=== PATIENT | female | born 1930 | race Caucasian/White ===

== ENCOUNTER 2018-04-25 01:21 | Inpatient (IN) ==
--- NOTE | 2018-04-25 05:57 | Internal Med History&Physical ---
Date of Encounter: 04/25/18 Time of Encounter: 05:53 Internal Medicine - H&P: HPI Chief complaint: status post fall History of present illness: Ms. Kelsey is a 87 year old female who presented to the outside hospital with a chief complaint of having a problem after she sustained a fall. Imaging studies revealed, in U Limited intertrochanteric fracture with forced shortening and angulation of the distal fragment, surgery was consulted and requested for the patient to be admitted to the hospitalist service and they will see the patient in consult. Past Med Surg Social Fam HX - Past Medical History Medical history: dementia, glaucoma, hypertension Additional medical history: SHINGLES Psychiatric history: no psych history - Past Surgical History Surgical History: hysterectomy Additional surgical history: LEFT KNEE SURGERY - Social History Smoking Status: Former smoker Smokeless Tobacco Status: No Alcohol use: none Drug use: none - Family History Mother Living Status: Age at : 98 Father History Unknown: Yes Internal Medicine - H&P: Meds Latanoprost 1 drop BOTH EYES HS 02/08/18 [History] Lisinopril 40 mg PO DAILY 02/08/18 [History] Timolol 1 drop BOTH EYES DAILY 02/08/18 [History] hydroCHLOROthiazide 25 mg PO DAILY 02/08/18 [History] 3 Allergy/AdvReac Type Severity Reaction Status Date / Time Sulfa (Sulfonamide Allergy Hives Verified 02/08/18 17:38 Antibiotics) ROS unobtainable: due to mental status All Systems PM: A 10-system review of systems was performed and is negative for pertinent findings except as documented above in the HPI. - Constitutional Vitals: Temp Pulse Resp BP Pulse Ox 97.8 F 57 16 168/66 99 04/25/18 03:22 04/25/18 03:22 04/25/18 03:22 04/25/18 03:22 04/25/18 03:22 - Head Head exam: Present: atraumatic, normocephalic - Neck Neck exam general surgery: Present: supple, trachea midline. Absent: lymphadenopathy - Respiratory Respiratory exam: Present: CTAB. Absent: accessory muscle use, rales, rhonchi, wheezes - Cardiovascular Cardiovascular exam: Present: RRR, +S1, +S2. Absent: diastolic murmur, gallop, rubs, systolic murmur - GI/Abdominal GI/Abdominal exam: Present: normal bowel sounds, soft, no peritoneal signs. Absent: distended, tenderness - Extremities Exam Extremities exam: Present: warm, radial pulses palpable and symmetrical. Absent : calf tenderness, cyanotic, pedal edema - Assessment and plan (1) Hip fracture, right Current Visit: Yes Status: Acute Assessment and plan: Orthopedic surgery were consulted and they will be seeing the patient in consult this a.m. (2) Hypertension Current Visit: Yes Status: Acute Assessment and plan: We will continue home meds and continue to monitor the patient blood pressure for possible further adjustment (3) DVT prophylaxis Current Visit: Yes Status: Acute Assessment and plan: heparin 5000 BID - Time Spent With Patient Total time spent is greater than 50% in coordination of care (as documented) at patient's floor/unit and/or counseling patient:
[2018-04-25] MEDS ORDERED: Acetaminophen 325 MG TABLET PO PRN ×2 (06:01→19:12)
[2018-04-25] MEDS ORDERED: Naloxone 0.4 MG/ML INJ IVP PRN ×2 (06:01→19:12)
[2018-04-25] MEDS ORDERED: Ondansetron ODT 4 MG TAB.RAPDIS SL PRN ×2 (06:01→19:12)
[2018-04-25] MEDS ORDERED: *HR* HYDROcodone/Acet 5/325 mg TABLET PO PRN ×2 (06:01→19:12)
[2018-04-25] MEDS ORDERED: 0.9 % Sodium Chloride 1,000 ML IVC SCH (06:15)
[2018-04-25 06:32] LABS: INR 1.1; Prothrombin Time 11.9 Seconds (9.4-12.1)
[2018-04-25 06:35] LABS: Activated Partial Thrombo Time 34.5 Seconds (26.0-36.0)
[2018-04-25 06:56] LABS: Albumin 3.7 g/dL (3.5-5.7); Albumin/Globulin Ratio 1.4 (1.1-2.2); Bilirubin,Total 0.4 mg/dL (0.3-1.0); Calcium 9.2 mg/dL (8.6-10.3); Chol/HDL Ratio 3.8 (0-4.9); Globulin 2.7 g/dL (2.4-3.5); Magnesium 2.3 mg/dL (1.6-2.6); Phosphorous 4.8 mg/dL (2.7-4.5); Potassium 4.6 mEq/L (3.5-5.1); Total Protein 6.4 g/dL (6.4-8.9)
[2018-04-25 07:00] LABS: Basophils % 0.2 %; Eosinophils % 0.3 %; Hematocrit 33.2 % (35.3-44.9); Immature Granulocytes % 0.5 % (0-4); Lymphocytes % 11.2 %; Mean Corpuscular HGB Conc 33.1 g/dL (31.6-35.5); Mean Corpuscular Hemoglobin 32.2 pg (28.0-33.3); Mean Corpuscular Volume 97.1 fL (83.0-100.0); Mean Platelet Volume 11.2 fL (9.4-12.4); Monocytes # 0.6 K/mcL (0.0-1.3); Neutrophils # 7.1 K/mcL (1.6-8.9); Platelet Count 166 K/mcL (140-400); Red Blood Count 3.42 M/mcL (3.82-4.97); Red Cell Distribution Width 14.4 % (11.5-14.5); Segmented Neutrophils % 80.8 %
[2018-04-25] MEDS ORDERED: *HR* FentaNYL (PF) 100 MCG/2 ML VIAL IVP ONE (07:03)
[2018-04-25 07:19] LABS: Bilirubin,Urine Negative (Negative); Blood,Urine Trace (Negative); Clarity,Urine Clear (Clear); Color,Urine Yellow (Yellow); Glucose,Urine (UA) Normal (Normal); Ketones,Urine Negative (Negative); Leukocyte Esterase,Urine Negative (Negative); Nitrite,Urine Negative (Negative); PH,Urine 5.5 pH Units (5.0-8.0); Protein,Urine Negative (Neg-Trace); Urobilinogen,Urine Normal (Normal)
[2018-04-25 07:22] LABS: Bacteria,Urine None Seen per hpf (None-Few); Hyaline Casts,Urine None Seen per lpf (None-Few); Squamous Epithelial Cell,Urine Moderate per lpf (None-Few); WBC,Urine 0-3 per hpf (0-3)
--- NOTE | 2018-04-25 07:33 | Anesthesia Evaluation PreOp ---
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) Other Medical History: Denies Any Significant HX Anesthesia History: No Prior Anesthetic Complications, Past Anesthesia Alcohol Use: none Drug use: none Medications and Allergies Latanoprost 1 drop BOTH EYES HS 02/08/18 [History] Lisinopril 40 mg PO DAILY 02/08/18 [History] Timolol 1 drop BOTH EYES DAILY 02/08/18 [History] hydroCHLOROthiazide 25 mg PO DAILY 02/08/18 [History] 3 Allergy/AdvReac Type Severity Reaction Status Date / Time Sulfa (Sulfonamide Allergy Hives Verified 02/08/18 17:38 Antibiotics) - Meds/Allergy Pre-op Review Medications Reviewed: Yes Allergies Reviewed: Yes Beta Blockers on Current Med List: No Anesthesia Results - Labs 04/25/18 06:14 04/25/18 06:14 Laboratory Tests 04/25/18 06:15 PT 11.9 INR 1.1 APTT 34.5 - Imaging Additional studies: 04/25/2018 Echo Impressions: LVEF 60-65%. Normal LV chamber size and function. Mild concentric left ventricular hypertrophy. Mild left ventricular diastolic dysfunction. Grossly normal right ventricular structure and function. Severely calcified aortic valve leaflets. Mild aortic regurgitation. Severe aortic stenosis. Mean gradient 44 mmHg. Peak velocity 4.08 m/s. Unable to estimate RVSP due to lack of TR jet. Anesthesia Exam Vital Signs/O2 Sat, Most Current Temp Pulse Resp BP Pulse Ox 97.6 F 62 18 132/66 96 04/25/18 06:22 04/25/18 06:22 04/25/18 06:22 04/25/18 06:22 04/25/18 06:22 Height: 4'11''/1.5m Weight: 111 lbs/50.5 kg NPO (# of Hours): 8 Pain Scale: 0 Pain Scale Used: Numeric (1 - 10) - HEENT Pupil (Motor): EOMI Mallampati: II Teeth: Edentulous Oral Opening: Greater than 3 - MECHANICAL SYSTEMS CONTROL ENGINEER LOC: Oriented MECHANICAL SYSTEMS CONTROL ENGINEER Motor: Normal RUE, Normal LUE, Normal RLE, Normal LLE, Normal Face MECHANICAL SYSTEMS CONTROL ENGINEER Sensory: Normal: RUE, LUE, RLE, LLE, Face - Cardiac Rhythm: Regular Murmur: Systolic - Pulmonary Breath Sounds: bilateral Clear Respiratory Effort: Symmetrical Anesthesia Assess/Plan ASA Score: 4 (Patient is awake and cooperative but confused. Consent obtained from daughter(POA).Patient's family understands that she is at increased risk for perioperative complications including myocardial infarct, arrhythmias, CVA, post op vent support/ICU stay, and . Patient's family wishes to proceed.) Anesthetic Plan: General Monitoring Plan: Standard Monitors, A-Line Recovery Plan: PACU
--- NOTE | 2018-04-25 07:44 | Orthopedic Consult Note ---
Date of Encounter: 04/25/18 Time of Encounter: 07:42 Assessment and Plan (1) Hip fracture, right Current Visit: Yes Status: Amanda Darling has a right hip reverse obliquity intertrochanteric fracture. The recommendation is for surgical fixation to allow for early mobilization and pain control. After discussing the pros and cons of treatment options with the family, the family has elected to proceed with right hip cephalomedullary nail at this time. The risks and benefits of the procedure were fully explained in detail, including but not limited to the risk of infection, neurovascular injury , continued pain or stiffness, failure of surgery, reinjury, or need for additional surgery, DVT, PE, general risks of anesthesia and loss of limb or life. No guarantees were given or implied and all questions were answered. The family understands all the risks and does wish to proceed with written consent. NPO for surgery. Qualifiers: Encounter type: initial encounter Fracture type: closed Qualified Code(s) : S72.001A - Fracture of unspecified part of neck of right femur, initial encounter for closed fracture History of Present Illness HPI: Ms. Kelsey is a 87 year old female with PMHx glaucoma, hypertension, and dementia who had a witnessed mechanical fall onto her right hip last night after tripping on a rug. She had immediate pain and deformity in the hip. She was brought to the ED and diagnosed with a right hip fracture. Orthopedics was consulted for fixation. Per the family she has a walker but does not use it. There was no loss of consciousness, blacking out, CP or SOB prior to the fall. No neuro complaints. Past Med Surg Social Fam HX - Past Medical History Medical history: dementia, glaucoma, hypertension Additional medical history: SHINGLES Psychiatric history: no psych history - Past Surgical History Surgical History: hysterectomy Additional surgical history: LEFT KNEE SURGERY - Social History Smoking Status: Former smoker Smokeless Tobacco Status: No Alcohol use: none Drug use: none - Family History Mother Living Status: Age at : 98 Father History Unknown: Yes Medications and Allergies Latanoprost 1 drop BOTH EYES HS 02/08/18 [History] Lisinopril 40 mg PO DAILY 02/08/18 [History] Timolol 1 drop BOTH EYES DAILY 02/08/18 [History] hydroCHLOROthiazide 25 mg PO DAILY 02/08/18 [History] 3 Allergy/AdvReac Type Severity Reaction Status Date / Time Sulfa (Sulfonamide Allergy Hives Verified 02/08/18 17:38 Antibiotics) All Systems Reviewed: The remainder of the systems were reviewed and are negative except as noted in the HPI Physical Exam - Constitutional Vitals: Temp Pulse Resp BP Pulse Ox 97.6 F 62 18 132/66 96 04/25/18 06:22 04/25/18 06:22 04/25/18 06:22 04/25/18 06:22 04/25/18 06:22 Exam: Consult Exam: Constitutional -Vitals reviewed -The patient is well developed and well nourished. Psychiatric -The patient is alert and oriented to person. Motor and sensory exam limited by dementia. Respiratory: -Respiratory effort normal Abdomen: -Soft abdomen -Non tender -Non distended: Left upper extremity: -No deformities. The overlying skin is intact. No obvious signs of acute trauma. -No tenderness to palpation throughout. -No significant pain with passive motion of the shoulder, elbow, wrist, and fingers within the limits of the bed. -Spontaneously moving extremity. -Radial pulse is present; Fingers have good capillary refill. Right upper extremity: -No deformities. The overlying skin is intact. No obvious signs of acute trauma. -No tenderness to palpation throughout. -No significant pain with passive motion of the shoulder, elbow, wrist, and fingers within the limits of the bed. -Spontaneously moving extremity. -Radial pulse is present; Fingers have good capillary refill. Left lower extremity: -No deformities. The overlying skin is intact. No obvious signs of acute trauma. -No tenderness to palpation throughout. -No pain with passive motion of the hip, knee, ankle, and toes within the limits of the bed. -No pain with axial loading of the thigh. -Spontaneously moving extremity. -Toes have good capillary refill. Right lower extremity: -Right hip short and ER. Passive motion of the hip deferred due to known fracture. -No obvious pain with palpation of knee, tibia, ankle and foot. -Spontaneously moving extremity. -Toes have good capillary refill. Results - Labs Result Diagrams: 04/25/18 06:14 04/25/18 06:14 Labs: Abnormal lab results RBC 3.42 M/mcL (3.82-4.97) L 04/25/18 06:14 Hgb 11.0 g/dL (11.5-15.4) L 04/25/18 06:14 Hct 33.2 % (35.3-44.9) L 04/25/18 06:14 Chloride 110 mEq/L (98-107) H 04/25/18 06:14 BUN 50 mg/dL (8-23) H 04/25/18 06:14 Creatinine 1.57 mg/dL (0.60-1.20) H 04/25/18 06:14 Est GFR ( Amer) 38 (> 60) L 04/25/18 06:14 Est GFR (Non-Af Amer) 31 (> 60) L 04/25/18 06:14 BUN/Creatinine Ratio 32 (6-26) H 04/25/18 06:14 Glucose 144 mg/dL (70-105) H 04/25/18 06:14 Calculated Osmolality 312 (280-300) H 04/25/18 06:14 Phosphorus 4.8 mg/dL (2.7-4.5) H 04/25/18 06:14 Alkaline Phosphatase 31 Units/L (34-104) L 04/25/18 06:14 LDL Cholesterol, Calc 110 mg/dL (0-99) H 04/25/18 06:14 Urine Blood Trace (Negative) H 04/25/18 07:10 Urine Microscopic RBC 5-15 per hpf (0-3) H 04/25/18 07:10 Ur Squamous Epith Cells Moderate per lpf (None-Few) H 04/25/18 07:10 H & H 04/25/18 Range/Units 06:14 Hgb 11.0 L (11.5-15.4) g/dL Hct 33.2 L (35.3-44.9) % All other labs normal. - Diagnostic results Hip x-ray: image reviewed (Right hip reverse obliquity intertrochanteric fracture) Consult Discharge Plan - Plan Referrals: Mauro Gee MD [Primary Care Provider] -
[2018-04-25] MEDS ORDERED: hydroCHLOROthiazide 25 MG TABLET PO SCH (09:00)
[2018-04-25] MEDS ORDERED: Lisinopril 20 MG TABLET PO SCH (09:00)
[2018-04-25] MEDS: 0.9 % Sodium Chloride 1,000 ML IVC SCH ×2 (09:16→21:52)
--- NOTE | 2018-04-25 09:21 | Event Note ---
Date of Encounter: 04/25/18 Time of Encounter: 09:16 S: Patient had no acute events after admission. She had some pain this morning that is now well-controlled after getting IV fentanyl. She was taken down to surgery, but came back with request for ECHO prior to surgery. I have ordered this. She denies fever, chills, chest pain, SOB, nausea, vomiting, or abdominal pain. Family is in room today and we discussed plan of care. Family states that she has history of kidney disease, but she never went to her nephrology referral appointment. Patient has no complaints at this time. O: Gen - Awake, alert, no acute distress HEENT - NCAT, PERRLA, EOMI, hearing grossly intact, oropharynx benign CV - RRR, normal S1 and S2, no M/R/G, no BLE edema Resp - Normal WOB, CTAB, no W/R/R GI - Soft, NT/ND, no masses, normal bowel sounds, no HSP Ext - No TTP over right hip; unable to evaluate ROM due to known fracture Skin - Warm, dry, no rashes/lesions/ulcers Psych - Normal mood and affect, no depression or anxiety A/P: 1) Right Hip Fracture - Orthopedics consulted; appreciate input. ECHO today, then surgery. Pain control. PT/OT after surgery. 2) CKD - No known baseline. Cr elevated. Continue IVF while NPO. Recheck BMP in AM. 3) HTN - Continue home medications.
[2018-04-25] MEDS ORDERED: Ethanol\\Acetic Acid\\Na Ace\\Ben 1,000 ML IRRIG.SOLN IR ONE (09:25)
[2018-04-25] MEDS ORDERED: *HR* FentaNYL (PF) 100 MCG/2 ML VIAL IVP PRN ×3 (12:17→19:12)
[2018-04-25] MEDS ORDERED: *HR* Phenylephrine 10 MG/ML VIAL ONE (14:23)
[2018-04-25] MEDS ORDERED: Dexamethasone 4 MG/ML VIAL ONE (14:23)
[2018-04-25] MEDS ORDERED: Lidocaine -MPF 2% 2 ML VIAL ONE (14:23)
[2018-04-25] MEDS ORDERED: Ondansetron 4 MG/2 ML VIAL ONE (14:23)
[2018-04-25] MEDS ORDERED: Heparin 1,000 UNITS/500 mL 500 ML ONE (14:24)
[2018-04-25] MEDS ORDERED: *HR* Etomidate 40 MG/20 ML VIAL IVP ONE (14:24)
[2018-04-25] MEDS ORDERED: *HR* Remifentanil 2 MG VIAL IVP ONE (14:26)
--- NOTE | 2018-04-25 14:49 | Orthopedics Progress Note ---
Date of Encounter: 04/25/18 Time of Encounter: 14:47 Subjective Interval history: S: Seen at the bedside with Dr. Elliott. I will be resuming the care of the patient. She complains of isolated pain to the right hip and groin. O: Constitutional -Vitals reviewed -The patient is well developed and well nourished. -Mood is pleasant. -The patient is well groomed. Psychiatric -The patient is fully alert and oriented x 3. Respiratory: -Respiratory effort normal Abdomen: -Soft abdomen -Non tender -Non distended: Left upper extremity: -No deformities. The overlying skin is intact. No obvious signs of acute trauma. -No tenderness to palpation throughout. -No significant pain with passive motion of the shoulder, elbow, wrist, and fingers within the limits of the bed. -Able to make an "OK" sign, cross the index and long fingers, and extend the thumb. -Sensation grossly intact to light touch throughout the median, radial, and ulnar distributions. -Radial pulse is present; Fingers have good capillary refill. Right upper extremity: -No deformities. The overlying skin is intact. No obvious signs of acute trauma. -No tenderness to palpation throughout. -No significant pain with passive motion of the shoulder, elbow, wrist, and fingers within the limits of the bed. -Able to make an "OK" sign, cross the index and long fingers, and extend the thumb. -Sensation grossly intact to light touch throughout the median, radial, and ulnar distributions. -Radial pulse is present; Fingers have good capillary refill. Left lower extremity: -No deformities. The overlying skin is intact. No obvious signs of acute trauma. -No tenderness to palpation throughout. -No pain with passive motion of the hip, knee, ankle, and toes within the limits of the bed. -No pain with axial loading of the thigh. -Able to dorsiflex and plantarflex the ankle and toes. -Sensation is grossly intact to light touch throughout the sural, saphenous, superficial peroneal, and deep peroneal distributions. -Toes have good capillary refill. Right lower extremity: -The extremity is shortened and externally rotated. The overlying skin is intact. -There is tenderness in the groin region as well as the proximal lateral thigh. -I did not range the hip due to the known fracture. -No tenderness along the distal thigh, leg, ankle, foot, or toes. -Able to dorsiflex and plantarflex the ankle and toes. -Sensation is grossly intact to light touch throughout the sural, saphenous, superficial peroneal, and deep peroneal distributions. -Toes have good capillary refill. Right hip x-ray shows reverse obliquity intertrochanteric hip fracture A: Right intertrochanteric hip fracture as described above P: I did discuss the diagnosis in detail. My recommendation was to continue with reduction and fixation of the right hip. She is at high risk of complication given her comorbidities particularly the aortic stenosis. I did discuss the risk of intraoperative stroke, heart attack, and as well as significant postoperative morbidities. They did wish to proceed and consent was obtained. Objective Vital signs: Vital Signs Temp Pulse Resp BP Pulse Ox 04/25/18 11:29 98.5 F 59 16 145/76 97 04/25/18 09:25 96 04/25/18 06:22 97.6 F 62 18 132/66 96 04/25/18 03:22 97.8 F 57 16 168/66 99 Intake and Output 04/24/18 04/25/18 04/25/18 23:59 07:59 15:59 Intake Total 0 / 0 Output Total 125 / 125 Balance -125 / -125 Intake: Oral 0 / 0 Output: Catheter 125 / 125 Other: Weight 50.5 kg Patient Weight 04/25/18 23:59 Weight 50.5 kg - Labs CBC & BMP: 04/25/18 06:14 04/25/18 06:14 Labs: Abnormal lab results RBC 3.42 M/mcL (3.82-4.97) L 04/25/18 06:14 Hgb 11.0 g/dL (11.5-15.4) L 04/25/18 06:14 Hct 33.2 % (35.3-44.9) L 04/25/18 06:14 Chloride 110 mEq/L (98-107) H 04/25/18 06:14 BUN 50 mg/dL (8-23) H 04/25/18 06:14 Creatinine 1.57 mg/dL (0.60-1.20) H 04/25/18 06:14 Est GFR ( Amer) 38 (> 60) L 04/25/18 06:14 Est GFR (Non-Af Amer) 31 (> 60) L 04/25/18 06:14 BUN/Creatinine Ratio 32 (6-26) H 04/25/18 06:14 Glucose 144 mg/dL (70-105) H 04/25/18 06:14 Calculated Osmolality 312 (280-300) H 04/25/18 06:14 Phosphorus 4.8 mg/dL (2.7-4.5) H 04/25/18 06:14 Alkaline Phosphatase 31 Units/L (34-104) L 04/25/18 06:14 LDL Cholesterol, Calc 110 mg/dL (0-99) H 04/25/18 06:14 Urine Blood Trace (Negative) H 04/25/18 07:10 Urine Microscopic RBC 5-15 per hpf (0-3) H 04/25/18 07:10 Ur Squamous Epith Cells Moderate per lpf (None-Few) H 04/25/18 07:10 Consult Discharge Plan - Plan Referrals: Mauro Gee MD [Primary Care Provider] -
[2018-04-25] MEDS ORDERED: *HR* FentaNYL (PF) 100 MCG/2 ML VIAL ONE ×2 (15:23→17:50)
[2018-04-25] MEDS ORDERED: Clindamycin 900 MG/50 ML 900 MG/50 ML IV.SOLN IVPB ONE (15:24)
[2018-04-25] MEDS ORDERED: EPHEDrine 50 MG/ML VIAL ONE (15:58)
[2018-04-25] MEDS ORDERED: Ketorolac 15 MG/ML VIAL IVP ONE (17:15)
[2018-04-25] MEDS: MORPHINE SUL Oral CONC 10 MG/0.5 ML ORAL.SYG SL PRN ×2 (17:28→17:42)
--- NOTE | 2018-04-25 17:46 | Orthopedic Operative Note ---
Date of procedure: 04/25/18 Procedure: OPERATIVE REPORT DATE OF PROCEDURE: 04/25/2018 SURGEON: Mac Horta MD VICE PRESIDENT INDUSTRIAL RELATIONS(S): There were no assistants PREOPERATIVE DIAGNOSIS: Right reverse obliquity intertrochanteric hip fracture POSTOPERATIVE DIAGNOSIS: Same PROCEDURE: Reduction and medullary nail fixation of the right hip ANESTHESIA: Gen. anesthesia PREOPERATIVE ANTIBIOTICS: Under 100 mg of clindamycin ESTIMATED BLOOD LOSS: 100 milliliters IMPLANTS: Marilu gamma 3 11 mm x 360 mm nail with a 125 degree head PREOPERATIVE NOTE AND INDICATIONS: This patient is an 87-year-old female with a right reverse oblique intertrochanteric hip fracture. Treatment options were discussed and the recommendation was for reduction and fixation in order to reduce and stabilize the right hip for pain control purposes and to help facilitate nursing care. The patient is high risk given her severe aortic stenosis and this was discussed with the family. The surgical plan was discussed with the patient. The risks, benefits, alternatives, and potential complications of this procedure were discussed with the patient including injury to veins, arteries, nerves, tendons, ligaments, and bone. Also discussed were the risks of infection, bleeding, pain, blood clots, the possible need for a blood transfusion, the possible need for further procedures, heart attack, stroke, and . Additional risks include malunion , nonunion, hardware failure, hardware breakage. All of this was explained in simple terms, and the patient verbalized understanding and wished to proceed. Consent was given to proceed with surgery. PROCEDURE: The patient was seen in the preoperative holding area where the identify and the consent were confirmed. The right hip was marked. Final questions were answered. The patient was brought back to the operating room. A huddle was performed with the patient and all vital surgical team members confirming patient identity, the correct procedure, and the correct operative site. Gen. anesthesia was administered. The patient was placed on a fracture table and the right lower extremities placed in traction reduction and internal rotation which reduced the fracture nicely. X-rays confirmed good position. The right thigh was prepped and draped in the usual sterile fashion. A surgical time out was performed immediately preceding the incision with all personnel in the operating room to confirm patient identity, the correct operative site and extremity, correct radiographic studies, availability of appropriate surgical equipment, and agreement on the planned procedure. A longitudinal incision was made through the skin and subcutaneous tissue superior to the greater trochanter and dissection proceeded through the gluteal fascia. A guidewire was inserted into the proximal femur. This was opened with a curved awl. The ball-tipped guidewire was placed onto the femur distally and the nail was measured. Reaming proceeded up to 12-1/2 mm as the 11 mm nail was the widest available. This was placed down the femoral canal and the triple sleeve placed over the skin and the second incision was made through the skin, subcutaneous tissue, and the fascia. The guidewire was drilled into the femoral head and overdrilled and the appropriate length lag screw was placed. Using a perfect [place] technique to incisions were made and 2 distal interlocking screws were placed. X-rays confirmed adequate reduction. The wounds were copiously irrigated and the fascia was closed with 0 Vicryl stitches followed by the skin with 3-0 Vicryl and cesar. The patient was placed on a regular hospital bed in good condition. The instrument, sponge, and needle counts were correct after wound closure. POST OPERATIVE PLAN: Weight Bearing: Nonweightbearing to the right lower extremity. DVT Prophylaxis: Aspirin Activity: Activities as tolerated with the assistance of nursing and physical therapy. Wound Care: Daily dressing changes beginning on postoperative day 2. Perioperative antibiotic prophylaxis: 2 doses of clindamycin Social work for discharge planning Follow Up: 2 weeks for staple removal. Anticipate nonweightbearing for 6 weeks. Was there an personal banking assistant present: No Estimated blood loss (cc): 100
[2018-04-25] MEDS: *HR* FentaNYL (PF) 100 MCG/2 ML VIAL IVP SCH ×2 (17:54→18:06)
--- NOTE | 2018-04-25 18:52 | Anesthesia Evaluation Post Op ---
Date of Encounter: 04/25/18 Time of Encounter: 18:52 - Vital Signs Vital Signs: Vital Signs/O2 Sat, Most Current Temp Pulse Resp BP Pulse Ox 97.6 F 86 22 144/64 99 04/25/18 18:17 04/25/18 18:37 04/25/18 18:37 04/25/18 18:37 04/25/18 18:37 - Lungs Lungs: Clear Ascult./Percussion - Airway Airway: Non-obstructed - Cardiovascular Regular Rate - Mental Status Mental Status: Asleep with brisk response to light stimulation - Pain Pain Scale used: Unable to assess - Nausea Vomiting Nausea Vomiting: Not Present - Hydration Hydration: NPO, Srivastava catheter - Discharge PostOp Status: Transfer Patient to floor
[2018-04-25] MEDS ORDERED: Latanoprost 2.5 ML BOTTLE BOTH EYES SCH (21:00)
[2018-04-25] MEDS: Latanoprost 2.5 ML BOTTLE BOTH EYES SCH (21:58)
[2018-04-26] MEDS ORDERED: 0.9 % Sodium Chloride 250 ML IVC ONE (00:45)
[2018-04-26] MEDS: Clindamycin 900 MG/50 ML 900 MG/50 ML IV.SOLN IVPB SCH ×2 (00:55→08:47)
[2018-04-26 01:15] LABS: Hematocrit 25.4 % (35.3-44.9); Immature Granulocytes % 0.4 % (0-4); Lymphocytes # 0.6 K/mcL (0.6-4.6); Lymphocytes % 7.5 %; Mean Corpuscular HGB Conc 32.3 g/dL (31.6-35.5); Mean Corpuscular Hemoglobin 31.9 pg (28.0-33.3); Mean Corpuscular Volume 98.8 fL (83.0-100.0); Monocytes # 0.6 K/mcL (0.0-1.3); Monocytes % 6.6 %; Neutrophils # 7.2 K/mcL (1.6-8.9); Platelet Count 127 K/mcL (140-400); Red Blood Count 2.57 M/mcL (3.82-4.97); Red Cell Distribution Width 14.6 % (11.5-14.5); Segmented Neutrophils % 85.5 %
[2018-04-26 01:19] LABS: Hemoglobin 8.2 g/dL (11.5-15.4)
[2018-04-26 01:36] LABS: Albumin/Globulin Ratio 1.6 (1.1-2.2); Bilirubin,Total 0.4 mg/dL (0.3-1.0); Calcium 8.3 mg/dL (8.6-10.3); Chol/HDL Ratio 3.9 (0-4.9); Globulin 1.9 g/dL (2.4-3.5); Magnesium 1.9 mg/dL (1.6-2.6); Phosphorous 5.4 mg/dL (2.7-4.5); Potassium 4.9 mEq/L (3.5-5.1); Total Protein 4.9 g/dL (6.4-8.9)
[2018-04-26] MEDS: 0.9 % Sodium Chloride 1,000 ML IVC SCH ×5 (06:38→23:37)
[2018-04-26] MEDS ORDERED: 0.9 % Sodium Chloride 1,000 ML IVC ONE (08:31)
--- NOTE | 2018-04-26 08:45 | Orthopedics Progress Note ---
Date of Encounter: 04/26/18 Time of Encounter: 08:43 - Assessment and Plan (1) Hip fracture, right Current Visit: Yes Status: Acute Qualifiers: Encounter type: initial encounter Fracture type: closed Qualified Code(s) : S72.001A - Fracture of unspecified part of neck of right femur, initial encounter for closed fracture Subjective Interval history: S: Significant improvement of the right hip pain. No new complaints. O: Afebrile on the vital signs are stable Calves are nontender Neurovascularly intact distally to the right lower extremity A: Postoperative day 1 after right hip nailing. P: At this point the patient is doing very well clinically. Srivastava out today. Up with therapy. Aspirin 325 by mouth twice a day for DVT prophylaxis. Dressing change tomorrow. Objective Vital signs: Vital Signs Temp Pulse Resp BP Pulse Ox 04/26/18 07:03 98.9 F 75 16 100/60 95 04/26/18 03:26 74 14 96/51 04/26/18 02:41 97.9 F 69 16 98 04/26/18 01:15 104/61 04/25/18 23:16 98.0 F 68 18 99 04/25/18 22:05 98.6 F 14 101/63 99 04/25/18 21:00 97.8 F 87 15 95/60 100 04/25/18 20:00 97.8 F 82 14 98/63 100 04/25/18 19:30 97.9 F 87 14 94/50 98 04/25/18 18:55 97.6 F 92 20 134/72 99 04/25/18 18:37 86 22 144/64 99 04/25/18 18:27 90 20 147/71 99 04/25/18 18:17 97.6 F 88 20 144/65 98 04/25/18 18:07 87 20 151/52 99 04/25/18 17:57 88 20 164/91 99 04/25/18 17:47 97.7 F 92 20 184/81 100 04/25/18 17:37 98 20 182/83 99 04/25/18 17:27 104 22 179/101 99 04/25/18 17:17 99 20 164/104 99 04/25/18 17:07 98.1 F 98 16 128/77 94 04/25/18 11:29 98.5 F 59 16 145/76 97 04/25/18 09:25 96 Intake and Output 04/25/1818 04/26/18 23:59 07:59 15:59 Intake Total 1000 / 1000 Output Total 550 / 550 200 / 200 Balance -550 / -550 800 / 800 Intake: IV Fluids 1000 / 1000 0.9 % Sodium Chloride 1,000 ML 1000 / 1000 @ 125 mls/hr IVC .Q8H ALICIA Rx#: [id number] Output: Urine 450 / 450 Catheter 100 / 100 200 / 200 - Labs CBC & BMP: 04/26/18 00:49 04/26/18 00:49 Labs: Abnormal lab results RBC 2.57 M/mcL (3.82-4.97) L 04/26/18 00:49 Hgb 8.2 g/dL (11.5-15.4) L D 04/26/18 00:49 Hct 25.4 % (35.3-44.9) L 04/26/18 00:49 RDW 14.6 % (11.5-14.5) H 04/26/18 00:49 Plt Count 127 K/mcL (140-400) L 04/26/18 00:49 Chloride 112 mEq/L (98-107) H 04/26/18 00:49 BUN 43 mg/dL (8-23) H 04/26/18 00:49 Creatinine 1.47 mg/dL (0.60-1.20) H 04/26/18 00:49 Est GFR ( Amer) 41 (> 60) L 04/26/18 00:49 Est GFR (Non-Af Amer) 34 (> 60) L 04/26/18 00:49 BUN/Creatinine Ratio 29 (6-26) H 04/26/18 00:49 Glucose 149 mg/dL (70-105) H 04/26/18 00:49 Calculated Osmolality 310 (280-300) H 04/26/18 00:49 Calcium 8.3 mg/dL (8.6-10.3) L 04/26/18 00:49 Phosphorus 5.4 mg/dL (2.7-4.5) H 04/26/18 00:49 Alkaline Phosphatase 27 Units/L (34-104) L 04/26/18 00:49 Serum Total Protein 4.9 g/dL (6.4-8.9) L 04/26/18 00:49 Albumin 3.0 g/dL (3.5-5.7) L 04/26/18 00:49 Globulin 1.9 g/dL (2.4-3.5) L 04/26/18 00:49 HDL Cholesterol 35 mg/dL (40-59) L 04/26/18 00:49 Urine Blood Trace (Negative) H 04/25/18 07:10 Urine Microscopic RBC 5-15 per hpf (0-3) H 04/25/18 07:10 Ur Squamous Epith Cells Moderate per lpf (None-Few) H 04/25/18 07:10 - VTE Documentation of Mechanical Device: Intermittent pneumatic compression device Consult Discharge Plan - Plan Additional Instructions: RESIDENTIAL DISCHARGE INSTRUCTIONS Dr. Horta PROCEDURE PERFORMED Reduction and fixation of right hip. Incision care -Daily dressing changes to the right hip with dry gauze and either paper tape or medipore tape. -Avoid soaking wound in water (no hot tubs, bathtubs, swimming pools). -May shower after 2 weeks from surgery date. Carefully wash incision with soap and water. Gently pat it dry. Don't rub the incision, or apply creams or lotions. Sit on a shower stool when showering to keep from falling. Weight bearing status -Weightbearing as tolerated to the bilateral lower extremities. Medications -Pain medication per the discharging medical doctor -Enteric coated aspirin 325 mg by mouth twice per day for 28 days from the date of the surgery. Other -Knee high SINDI hose 23 hours per day -Consult physical and occupational therapy for mobilization. -Up to chair with assistance at least twice per day. -Follow up with your primary care physician to discuss testing for bone mineral density. Follow-up with Dr. Horta at the office 2 weeks from the surgery date for a post operative evaluation. Call the office at [phone] to schedule appointment. Referrals: Mauro Gee MD [Primary Care Provider] -
--- NOTE | 2018-04-26 08:57 | Internal Med Progress Note ---
Date of Encounter: 04/26/18 Time of Encounter: 08:53 - Assessment and plan (1) Hip fracture, right Current Visit: Yes Status: Acute Assessment and plan: Orthopedic surgery consulted; appreciate input. Pain control. PT/OT consulted. Will await further recommendations from orthopedics. Qualifiers: Encounter type: subsequent encounter Fracture type: closed Fracture healing: with routine healing Qualified Code(s): S72.001D - Fracture of unspecified part of neck of right femur, subsequent encounter for closed fracture with routine healing (2) Hypertension Current Visit: Yes Status: Chronic Assessment and plan: Hypotensive today. Hold home lisinopril and HCTZ. Give 1L NS bolus this AM and continue IV NS at 125 ml/hr. Monitor for signs of fluid overload. Monitor vitals closely. Qualifiers: Hypertension type: essential hypertension Qualified Code(s): I10 - Essential (primary) hypertension (3) CKD (chronic kidney disease) Current Visit: Yes Status: Acute Assessment and plan: Unknown baseline. Creatinine improved today. Continue IVF. Monitor for signs of fluid overload. Recheck BMP in AM. Get new outpatient nephrology referral from PCP. Qualifiers: Chronic kidney disease stage: unspecified stage Qualified Code(s): N18.9 - Chronic kidney disease, unspecified (4) Anemia Current Visit: Yes Status: Acute Assessment and plan: H/H dropped post-operatively. Transfuse if hemoglobin drops below 7.0 or if symptomatic. Recheck CBC in AM. Qualifiers: Anemia type: unspecified type Qualified Code(s): D64.9 - Anemia, unspecified (5) DVT prophylaxis Current Visit: Yes Status: Acute Assessment and plan: Start lovenox 30 mg SQ QD. - Time Spent With Patient Total time spent is greater than 50% in coordination of care (as documented) at patient's floor/unit and/or counseling patient: less than 15 minutes - Subjective Interval history: Patient had no acute events overnight. Surgery went without issues yesterday. She had some hypotension post-surgery and overnight. BP improved, but still low this AM. BP medications were held. She is more alert this morning. She denies any pain at this time. She has no complaints. - Constitutional Vitals: Temp Pulse Resp BP Pulse Ox 98.9 F 75 16 100/60 95 04/26/18 07:03 04/26/18 07:03 04/26/18 07:03 04/26/18 07:03 04/26/18 07:03 General appearance: Present: cooperative, A&O X 3, pleasant, no acute distress, answers questions appropriately - Respiratory Respiratory exam: Present: CTAB. Absent: accessory muscle use, rales, rhonchi, wheezes Additional comments: Normal WOB - Cardiovascular Cardiovascular exam: Present: RRR, +S1, +S2. Absent: diastolic murmur, gallop, rubs, systolic murmur Additional comments: No BLE edema - GI/Abdominal GI/Abdominal exam: Present: normal bowel sounds, soft. Absent: distended, hepatomegaly, mass, splenomegaly, tenderness - Psychiatric Psychiatric exam: Present: normal affect, normal mood. Absent: agitated, anxious, depressed - Skin Skin exam: Present: dry, intact, warm. Absent: cyanosis, rash Internal Medicine: Result - Labs CBC & Chem 7: 04/26/18 00:49 04/26/18 00:49 Labs: Short CBC 04/26/18 Range/Units 00:49 WBC 8.4 (4.3-11.1) K/mcL Hgb 8.2 L D (11.5-15.4) g/dL Hct 25.4 L (35.3-44.9) % Plt Count 127 L (140-400) K/mcL Neutrophils # 7.2 (1.6-8.9) K/mcL BMP 04/26/18 00:49 Sodium 143 Potassium 4.9 Chloride 112 H Carbon Dioxide 23 BUN 43 H Creatinine 1.47 H Glucose 149 H Calcium 8.3 L Liver Function 04/26/18 Range/Units 00:49 Total Bilirubin 0.4 (0.3-1.0) mg/dL AST 13 (13-39) Units/L ALT 7 (7-52) Units/L Alkaline Phosphatase 27 L (34-104) Units/L Albumin 3.0 L (3.5-5.7) g/dL - ABG Interpretation ABG results: PT/INR, D-dimer PT 11.9 Seconds (9.4-12.1) 04/25/18 06:15 - Impressions Impressions Echocardiogram 04/25/18 08:56 Impressions: LVEF 60-65%. Normal LV chamber size and function. Mild concentric left ventricular hypertrophy. Mild left ventricular diastolic dysfunction. Grossly normal right ventricular structure and function. Severely calcified aortic valve leaflets. Mild aortic regurgitation. Severe aortic stenosis. Mean gradient 44 mmHg. Peak velocity 4.08 m/s. Unable to estimate RVSP due to lack of TR jet. Left Ventricular Wall Motion: Rest Echo Findings All wall segments showed normal motion. Findings: Study Quality * Technically adequate exam. ECG Findings * Normal sinus rhythm. Left Ventricle * LVEF 60-65%. * Normal LV chamber size and function. * Mild concentric left ventricular hypertrophy. * Mild left ventricular diastolic dysfunction. Right Ventricle * Grossly normal right ventricular structure and function. Left Atrium * Normal left atrial size. Right Atrium * Normal right atrial size. Aortic Valve * Severely calcified aortic valve leaflets. * Mild aortic regurgitation. * Severe aortic stenosis. Mean gradient 44 mmHg. Peak velocity 4.08 m/s. Mitral Valve * Moderate mitral annular calcification * Trace mitral regurgitation. * No mitral stenosis. Tricuspid Valve * Normal tricuspid valve structure and function. * No tricuspid regurgitation. * Unable to estimate RVSP due to lack of TR jet. Pulmonic Valve * Pulmonic valve not well visualized. * No pulmonic regurgitation. Aorta * Normally sized aortic root. Pericardium * The pericardium appears normal. IVC * Normal IVC dimensions and inspiratory collapse. Pulmonary Artery * Normal visualized portions of the main pulmonary artery. Fluoroscopy 04/25/18 15:40 IMPRESSION: Intraprocedural fluoroscopic spot images as above. See separate procedure report for more information. D/ / Dany Torres MD / Dany Torres MD Interpreting Provider: Dany Torres MD Consult Discharge Plan - Plan Additional Instructions: SHELTER DISCHARGE INSTRUCTIONS Dr. Horta PROCEDURE PERFORMED Reduction and fixation of right hip. Incision care -Daily dressing changes to the right hip with dry gauze and either paper tape or medipore tape. -Avoid soaking wound in water (no hot tubs, bathtubs, swimming pools). -May shower after 2 weeks from surgery date. Carefully wash incision with soap and water. Gently pat it dry. Don't rub the incision, or apply creams or lotions. Sit on a shower stool when showering to keep from falling. Weight bearing status -Weightbearing as tolerated to the bilateral lower extremities. Medications -Pain medication per the discharging medical doctor -Enteric coated aspirin 325 mg by mouth twice per day for 28 days from the date of the surgery. Other -Knee high SINDI hose 23 hours per day -Consult physical and occupational therapy for mobilization. -Up to chair with assistance at least twice per day. -Follow up with your primary care physician to discuss testing for bone mineral density. Follow-up with Dr. Horta at the office 2 weeks from the surgery date for a post operative evaluation. Call the office at [phone] to schedule appointment. Referrals: Mauro Gee MD [Primary Care Provider] -
[2018-04-26] MEDS ORDERED: Aspirin Enteric Coated 325 MG Tablet PO SCH (09:00)
[2018-04-26] MEDS ORDERED: hydroCHLOROthiazide 25 MG TABLET PO SCH (09:00)
[2018-04-26] MEDS ORDERED: Lisinopril 20 MG TABLET PO SCH (09:00)
[2018-04-26] MEDS ORDERED: *HR* Enoxaparin 30 MG/0.3 ML SYRINGE SQ SCH (09:15)
--- NOTE | 2018-04-26 11:34 | Electrocardiograph Report ---
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
[2018-04-26 13:25] LABS: Basophils % 0.1 %; Hematocrit 22.2 % (35.3-44.9); Hemoglobin 7.1 g/dL (11.5-15.4); Immature Granulocytes % 0.2 % (0-4); Lymphocytes # 0.8 K/mcL (0.6-4.6); Mean Corpuscular Hemoglobin 32.1 pg (28.0-33.3); Mean Corpuscular Volume 100.5 fL (83.0-100.0); Monocytes # 0.9 K/mcL (0.0-1.3); Monocytes % 10.9 %; Neutrophils # 6.4 K/mcL (1.6-8.9); Platelet Count 129 K/mcL (140-400); Red Blood Count 2.21 M/mcL (3.82-4.97); Red Cell Distribution Width 14.7 % (11.5-14.5); Segmented Neutrophils % 78.8 %
[2018-04-26] MEDS ORDERED: 0.9 % Sodium Chloride 1,000 ML ONE (13:35)
[2018-04-26 13:49] LABS: Calcium 7.5 mg/dL (8.6-10.3); Potassium 5.3 mEq/L (3.5-5.1)
--- NOTE | 2018-04-26 14:42 | Event Note ---
Date of Encounter: 04/26/18 Time of Encounter: 14:26 Rapid response called on patient at 13:07. Nurse paged me and stated that BP dropped and she was having difficult time arousing patient. I arrived in patient room. Her IV NS bag that was running at 125 ml/hr was changed to wide open. BP was in systolic 50-60s. Patient would only moan to sternal rub, but would not open eyes or speak. She was mildly tachypneic. Extremities were perfusing well. Pads were attached. Second wide open bag of IV NS was started. Trauma blood was requested. STAT BMP, CBC, troponin, and lactic acid were ordered. BP improved to systolic 70-80s, and she started moaning without provocation, but still not responsive. Supplemental O2 was increased to 6L NC. She was saturating in low 90s. She was given 2 mg of narcan, even though she had not had any narcotics today. She did not receive lovenox or other anticoagulation today. All home anti-hypertensives were discontinued. Once BP improved, we decided to move her to ICU for closer monitoring and possible need for pressors. Daughter arrived during rapid response, I informed her of the situation. She was able to see and talk to the patient. Patient was transferred to ICU in critical condition. In ICU, EKG was obtained, which showed multiple changes, including left axis deviation and ST depression. Patient had ECHO prior to surgery that showed severe aortic stenosis. Family and patient were aware of risks prior to surgery and decided to proceed. She had some hypotension post-op. Hemoglobin this AM was 8.2. Repeat hemoglobin was 7.1. One units of PRBC was started in ICU. BP continued to improve up to systolic 100s. She was still requiring 6L NC. I had meeting with both daughter and son in ICU meeting room, along with pastor Romeo. Family was aware of patient's declining health for some time now, including worsening of her dementia. They stated that patient has living will and is DNR-CCA-DNI in it. Daughter and son are the POAs. They confirm DNR-CCA-DNI status today, and agree to change here code status here to that. Patient is more verbal and responsive to noxious stimuli, but still somnolent and non-verbal. We will recheck H/H 2 hours after transfusion and consider 1 more unit of PRBC if necessary. We will resume IV NS at 75 ml/hr after blood transfusion complete and monitor fluid status closely. Will gently diurese if fluid overloaded. Monitor respiratory status closely. Neurochecks Q2H. Once patient is hemodynamically stabilized, will consider repeat EKG, ECHO, and cardiology consultation. Patient's condition is critical, and she is at high risk for decompensation and cardiac arrest.
[2018-04-26] MEDS ORDERED: 0.9 % Sodium Chloride 1,000 ML IVC SCH (14:45)
[2018-04-26 14:50] LABS: Troponin I 0.13 ng/mL (< 0.04)
[2018-04-26 17:04] LABS: Basophils % 0.1 %; Hematocrit 30.1 % (35.3-44.9); Immature Granulocytes % 0.3 % (0-4); Immature Platelets 5.8 % (1.1-6.1); Lymphocytes # 0.6 K/mcL (0.6-4.6); Lymphocytes % 7.1 %; Mean Corpuscular HGB Conc 32.6 g/dL (31.6-35.5); Mean Corpuscular Hemoglobin 32.2 pg (28.0-33.3); Mean Platelet Volume 11.2 fL (9.4-12.4); Monocytes % 10.5 %; Neutrophils # 7.4 K/mcL (1.6-8.9); Platelet Count 120 K/mcL (140-400); Red Blood Count 3.04 M/mcL (3.82-4.97); Red Cell Distribution Width 14.9 % (11.5-14.5)
[2018-04-26 17:07] LABS: Hemoglobin 9.8 g/dL (11.5-15.4)
--- NOTE | 2018-04-26 18:11 | Event Note ---
Date of Encounter: 04/26/18 Time of Encounter: 18:08 Evaluated patient again and spoke with daughter. BP holding in systolic 80s. No signs of fluid overload. O2 titrated down to 2L NC with O2 saturations in high 90s. Post-transfusion hemoglobin up to 9.8. Patient opened eyes to name, but closed. Still moaning to noxious stimuli. Unable to awaken. Give good fluid status, will increase IV NS to 125 ml/hr to help support BP and avoid use of pressors at this time. Will also order albumin to help with BP. She seems stable at this time, although still in critical condition. Updated daughter of condition. Troponin was 0.13; will trend. Will recheck EKG and ECHO in AM. Consider cardiology consult in AM once stable. Will discuss central line placement with handyman in AM.
[2018-04-26] MEDS ORDERED: Albumin 25% 25gram/100mL 25 GM/100 ML IV.SOLN IVC SCH (18:15)
[2018-04-26] MEDS: Latanoprost 2.5 ML BOTTLE BOTH EYES SCH (21:34)
[2018-04-27 05:34] LABS: Basophils % 0.3 %; Eosinophils % 0.1 %; Hematocrit 31.2 % (35.3-44.9); Immature Granulocytes % 0.5 % (0-4); Lymphocytes % 13.4 %; Mean Corpuscular HGB Conc 32.1 g/dL (31.6-35.5); Mean Corpuscular Hemoglobin 32.3 pg (28.0-33.3); Mean Corpuscular Volume 100.6 fL (83.0-100.0); Mean Platelet Volume 11.8 fL (9.4-12.4); Monocytes % 13.1 %; Neutrophils # 5.5 K/mcL (1.6-8.9); Platelet Count 124 K/mcL (140-400); Red Cell Distribution Width 15.9 % (11.5-14.5); Segmented Neutrophils % 72.6 %
[2018-04-27 06:01] LABS: Troponin I 22.96 ng/mL (< 0.04)
[2018-04-27] MEDS: 0.9 % Sodium Chloride 1,000 ML IVC SCH ×3 (06:09→16:23)
[2018-04-27 06:14] LABS: Albumin 3.3 g/dL (3.5-5.7); Albumin/Globulin Ratio 1.4 (1.1-2.2); Bilirubin,Total 0.7 mg/dL (0.3-1.0); Calcium 7.6 mg/dL (8.6-10.3); Globulin 2.3 g/dL (2.4-3.5); Potassium 5.3 mEq/L (3.5-5.1); Total Protein 5.6 g/dL (6.4-8.9)
[2018-04-27 06:22] LABS: ABG Base Excess -10 mEq/L (-2 to 3); ABG HCO3 16 mEq/L (21-27); ABG Oxygen Saturation 92 % (95-98); ABG PCO2 37 mmHg (35-45); ABG PH 7.25 pH Units (7.32-7.45); ABG PO2 73 mmHg (85-104); ABG TCO2 18 mEq/L (20-26); Blood Gas FiO2 0.5 (1-15=lpm or21-100=%)
--- NOTE | 2018-04-27 09:13 | Orthopedics Progress Note ---
Date of Encounter: 04/27/18 Time of Encounter: 09:10 - Assessment and Plan (1) Hip fracture, right Current Visit: Yes Status: Acute Qualifiers: Encounter type: subsequent encounter Fracture type: closed Fracture healing: with routine healing Qualified Code(s): S72.001D - Fracture of unspecified part of neck of right femur, subsequent encounter for closed fracture with routine healing Subjective Interval history: S: The events of last night are noted. She had low blood pressures and her troponins are trending up. The patient is now admitted to the ICU She does not communicate her complaints effectively however she is wincing in pain. O: Afebrile; vitals currently stable Right hip dressing is clean, dry, and intact. No increase in Donnie with passive motion of the right hip A: Post internal fixation of the right hip; possible NSTEMI P: Supportive care per the primary team; anticipate cardiology consult Once medically stable we will resume therapy regarding the right hip. Objective Vital signs: Vital Signs Temp Pulse Resp BP Pulse Ox 04/27/18 07:58 100 04/27/18 07:42 97.1 F L 04/27/18 07:00 100 31 103/66 100 04/27/18 06:00 96 22 95/54 100 04/27/18 05:00 96 22 102/55 100 04/27/18 04:34 98 04/27/18 04:00 97.6 F 100 22 98/66 100 04/27/18 03:00 95 20 102/56 96 04/27/18 02:00 98 22 101/59 95 04/27/18 01:00 99 20 104/62 93 04/27/18 00:00 97.6 F 101 24 94/68 100 04/26/18 23:00 96 24 89/55 100 04/26/18 22:00 101 24 84/59 100 04/26/18 21:00 103 24 88/54 100 04/26/18 20:17 103 04/26/18 20:00 97.6 F 103 24 87/57 100 04/26/18 19:00 101 28 80/47 98 04/26/18 18:16 97 04/26/18 18:00 96 26 87/46 100 04/26/18 17:00 90 18 81/45 100 04/26/18 16:00 87 20 74/44 100 04/26/18 15:06 97.4 F L 85 26 88/46 97 04/26/18 15:00 97.4 F L 84 24 88/46 98 04/26/18 14:30 100 04/26/18 14:16 87 04/26/18 14:15 89 32 112/55 100 04/26/18 13:53 96.1 F L 89 24 90/68 04/26/18 13:38 97.2 F L 88 24 04/26/18 13:33 97.2 F L 85 28 71/55 04/26/18 13:30 30 62/42 96 04/26/18 10:47 98.9 F 56 18 96/51 94 Intake and Output 04/26/18 04/27/18 04/27/18 23:59 07:59 15:59 Intake Total 1250 / 1250 Output Total 50 / 50 60 / 60 Balance 1200 / 1200 -60 / -60 Intake: IV Fluids 1250 / 1250 0.9 % Sodium Chloride 1,000 ML 1000 / 1000 @ 125 mls/hr IVC .Q8H ALICIA Rx#: [id number] ALBURX 5% 12.5 gm In 250 ml @ 250 / 250 60 mls/hr IVC .Q4H10M ALICIA Rx#: [id number] Output: Catheter 50 / 50 60 / 60 - Labs CBC & BMP: 04/27/18 05:19 04/27/18 05:19 Labs: Abnormal lab results RBC 3.10 M/mcL (3.82-4.97) L 04/27/18 05:19 Hgb 10.0 g/dL (11.5-15.4) L 04/27/18 05:19 Hct 31.2 % (35.3-44.9) L 04/27/18 05:19 MCV 100.6 fL (83.0-100.0) H 04/27/18 05:19 RDW 15.9 % (11.5-14.5) H 04/27/18 05:19 Plt Count 124 K/mcL (140-400) L 04/27/18 05:19 ABG pH 7.25 pH Units (7.32-7.45) L 04/27/18 06:19 ABG pO2 73 mmHg (85-104) L 04/27/18 06:19 ABG HCO3 16 mEq/L (21-27) L 04/27/18 06:19 ABG Total CO2 18 mEq/L (20-26) L 04/27/18 06:19 ABG O2 Saturation 92 % (95-98) L 04/27/18 06:19 ABG Base Excess -10 mEq/L (-2 to 3) L 04/27/18 06:19 Potassium 5.3 mEq/L (3.5-5.1) H 04/27/18 05:19 Chloride 119 mEq/L (98-107) H 04/27/18 05:19 Carbon Dioxide 13 mEq/L (23-29) L 04/27/18 05:19 BUN 52 mg/dL (8-23) H 04/27/18 05:19 Creatinine 2.23 mg/dL (0.60-1.20) H 04/27/18 05:19 Est GFR ( Amer) 25 (> 60) L 04/27/18 05:19 Est GFR (Non-Af Amer) 21 (> 60) L 04/27/18 05:19 Glucose 107 mg/dL (70-105) H 04/27/18 05:19 POC Glucose 134 mg/dL (70-99) H 04/26/18 13:35 Calculated Osmolality 311 (280-300) H 04/27/18 05:19 Calcium 7.6 mg/dL (8.6-10.3) L 04/27/18 05:19 Phosphorus 5.4 mg/dL (2.7-4.5) H 04/26/18 00:49 AST 237 Units/L (13-39) H 04/27/18 05:19 ALT 123 Units/L (7-52) H 04/27/18 05:19 Alkaline Phosphatase 27 Units/L (34-104) L 04/27/18 05:19 Troponin I 22.96 ng/mL (< 0.04) H* 04/27/18 05:19 Serum Total Protein 5.6 g/dL (6.4-8.9) L 04/27/18 05:19 Albumin 3.3 g/dL (3.5-5.7) L 04/27/18 05:19 Globulin 2.3 g/dL (2.4-3.5) L 04/27/18 05:19 HDL Cholesterol 35 mg/dL (40-59) L 04/26/18 00:49 Urine Blood Trace (Negative) H 04/25/18 07:10 Urine Microscopic RBC 5-15 per hpf (0-3) H 04/25/18 07:10 Ur Squamous Epith Cells Moderate per lpf (None-Few) H 04/25/18 07:10 - VTE Documentation of Mechanical Device: Intermittent pneumatic compression device Consult Discharge Plan - Plan Additional Instructions: HALF-WAY DISCHARGE INSTRUCTIONS Dr. Horta PROCEDURE PERFORMED Reduction and fixation of right hip. Incision care -Daily dressing changes to the right hip with dry gauze and either paper tape or medipore tape. -Avoid soaking wound in water (no hot tubs, bathtubs, swimming pools). -May shower after 2 weeks from surgery date. Carefully wash incision with soap and water. Gently pat it dry. Don't rub the incision, or apply creams or lotions. Sit on a shower stool when showering to keep from falling. Weight bearing status -Weightbearing as tolerated to the bilateral lower extremities. Medications -Pain medication per the discharging medical doctor -Enteric coated aspirin 325 mg by mouth twice per day for 28 days from the date of the surgery. Other -Knee high SINDI hose 23 hours per day -Consult physical and occupational therapy for mobilization. -Up to chair with assistance at least twice per day. -Follow up with your primary care physician to discuss testing for bone mineral density. Follow-up with Dr. Horta at the office 2 weeks from the surgery date for a post operative evaluation. Call the office at [phone] to schedule appointment. Referrals: Mauro Gee MD [Primary Care Provider] -
[2018-04-27] MEDS ORDERED: *HR* Heparin 5,000 UNIT/ML VIAL IVP PRN ×2 (09:29)
[2018-04-27] MEDS ORDERED: *HR* Heparin 5,000 UNIT/ML VIAL IVP ONE (09:29)
[2018-04-27] MEDS ORDERED: Heparin 25,000 UNIT/500 ML D5W 25,000 UNIT/500 ML BAG IVC SCH (09:30)
--- NOTE | 2018-04-27 11:56 | Internal Med Progress Note ---
Date of Encounter: 04/27/18 Time of Encounter: 11:56 - Assessment and plan (1) Hip fracture, right Current Visit: Yes Status: Acute Qualifiers: Encounter type: subsequent encounter Fracture type: closed Fracture healing: with routine healing Qualified Code(s): S72.001D - Fracture of unspecified part of neck of right femur, subsequent encounter for closed fracture with routine healing (2) Hypertension Current Visit: Yes Status: Chronic Qualifiers: Hypertension type: essential hypertension Qualified Code(s): I10 - Essential (primary) hypertension (3) DVT prophylaxis Current Visit: Yes Status: Acute (4) CKD (chronic kidney disease) Current Visit: Yes Status: Acute Qualifiers: Chronic kidney disease stage: unspecified stage Qualified Code(s): N18.9 - Chronic kidney disease, unspecified (5) Anemia Current Visit: Yes Status: Acute Qualifiers: Anemia type: unspecified type Qualified Code(s): D64.9 - Anemia, unspecified (6) Goals of care, counseling/discussion Current Visit: Yes Status: Acute (7) Pulmonary embolism Current Visit: Yes Status: Suspected Qualifiers: Pulmonary embolism type: other Chronicity: unspecified Acute cor pulmonale presence: with acute cor pulmonale Qualified Code(s): I26.09 - Other pulmonary embolism with acute cor pulmonale (8) Elevated troponin Current Visit: Yes Status: Acute (9) Acute on chronic renal failure Current Visit: Yes Status: Acute Qualifiers: Acute renal failure type: unspecified Chronic kidney disease stage: stage 3 (moderate) Qualified Code(s): N17.9 - Acute kidney failure, unspecified; N18.3 - Chronic kidney disease, stage 3 (moderate) - Time Spent With Patient Total time spent is greater than 50% in coordination of care (as documented) at patient's floor/unit and/or counseling patient: - Subjective Interval history: Initial encounter Patient seen in the ICU with her daughter and POA Patient remains unarousable and not following commands She has a PMH of Dementia, CKD and HTN and was admitted for R hip fracture Post-op status complicated by hypotension, acute blood loss anemia and Suspected PE and NSTEMI The patient had been started on heparin drip and VQ scan ordered Unable to obtain Chest CTA due to worsening renal function Troponin this a.m peaked at 29 After educating the patient's daughter about the suspected diagnoses, she reports that she and her brother have decided to make the patient comfort care They do not want any further testing or invasion They want to make her just comfortable They are aware that without treatment , her suspected Acute NSTEMI, suspected PE and worsening renal failure will ultimately lead to cardiac arrest and . She further endorsed that the patient would not have wanted all the testing The patient will be transferred to and palliative care will be consulted Pain control initiated Code status changed to DNR-Comfort care only - Constitutional Vitals: Temp Pulse Resp BP Pulse Ox 97.1 F L 103 32 110/74 100 04/27/18 07:42 04/27/18 11:00 04/27/18 11:00 04/27/18 11:00 04/27/18 11:00 General appearance: Present: A&O X 0 (moaning, not responding, not following commands) - Head Head exam: Present: atraumatic, normocephalic - Eye Eye exam: Present: PERRL, conjuntiva pink, sclera anicteric Pupils: Present: PERRL - ENT ENT exam: Present: mucous membranes dry - Respiratory Respiratory exam: Present: CTAB (anteriorly) - Cardiovascular Cardiovascular exam: Present: +S1, +S2 - GI/Abdominal GI/Abdominal exam: Present: normal bowel sounds, soft, no peritoneal signs. Absent: tenderness - Neurological Exam Neurological exam: Present: altered. Absent: alert, oriented X3, strengths equal and symetr throughout, pronater drift, facial droop - Skin Skin exam: Present: dry Internal Medicine: Result - Labs CBC & Chem 7: 04/27/18 05:19 04/27/18 05:19 Labs: Short CBC 04/26/18 04/26/18 04/27/18 Range/Units 13:15 16:55 05:19 WBC 8.2 9.0 7.6 (4.3-11.1) K/mcL Hgb 7.1 L 9.8 L D 10.0 L (11.5-15.4) g/dL Hct 22.2 L 30.1 L 31.2 L (35.3-44.9) % Plt Count 129 L 120 L 124 L (140-400) K/mcL Neutrophils # 6.4 7.4 5.5 (1.6-8.9) K/mcL BMP 04/26/18 04/27/18 13:15 05:19 Sodium 141 143 Potassium 5.3 H 5.3 H Chloride 116 H 119 H Carbon Dioxide 20 L 13 L BUN 46 H 52 H Creatinine 1.78 H 2.23 H Glucose 157 H 107 H Calcium 7.5 L 7.6 L Cardiac Enzymes 04/26/18 04/27/18 04/27/18 Range/Units 13:15 01:03 05:19 Troponin I 0.13 H* 14.58 H* 22.96 H* (< 0.04) ng/mL Liver Function 04/27/18 Range/Units 05:19 Total Bilirubin 0.7 (0.3-1.0) mg/dL AST 237 H (13-39) Units/L ALT 123 H (7-52) Units/L Alkaline Phosphatase 27 L (34-104) Units/L Albumin 3.3 L (3.5-5.7) g/dL - ABG Interpretation ABG results: ABG ABG pH 7.25 pH Units (7.32-7.45) L 04/27/18 06:19 ABG pCO2 37 mmHg (35-45) 04/27/18 06:19 ABG pO2 73 mmHg (85-104) L 04/27/18 06:19 ABG O2 Saturation 92 % (95-98) L 04/27/18 06:19 PT/INR, D-dimer PT 11.9 Seconds (9.4-12.1) 04/25/18 06:15 - VTE Documentation of Mechanical Device: Intermittent pneumatic compression device Consult Discharge Plan - Plan Additional Instructions: [facility] DISCHARGE INSTRUCTIONS Dr. Horta PROCEDURE PERFORMED Reduction and fixation of right hip. Incision care -Daily dressing changes to the right hip with dry gauze and either paper tape or medipore tape. -Avoid soaking wound in water (no hot tubs, bathtubs, swimming pools). -May shower after 2 weeks from surgery date. Carefully wash incision with soap and water. Gently pat it dry. Don't rub the incision, or apply creams or lotions. Sit on a shower stool when showering to keep from falling. Weight bearing status -Weightbearing as tolerated to the bilateral lower extremities. Medications -Pain medication per the discharging medical doctor -Enteric coated aspirin 325 mg by mouth twice per day for 28 days from the date of the surgery. Other -Knee high SINDI hose 23 hours per day -Consult physical and occupational therapy for mobilization. -Up to chair with assistance at least twice per day. -Follow up with your primary care physician to discuss testing for bone mineral density. Follow-up with Dr. Horta at the office 2 weeks from the surgery date for a post operative evaluation. Call the office at [phone] to schedule appointment. Referrals: Mauro Gee MD [Primary Care Provider] -
[2018-04-27] MEDS: *HR* FentaNYL (PF) 100 MCG/2 ML VIAL IVP PRN ×2 (12:14→18:29)
[2018-04-27] MEDS: OXYCODONE Oral CONC 10 MG/0.5 ML ORAL.SYG SL SCH ×3 (14:30→21:15)
[2018-04-27] MEDS: Latanoprost 2.5 ML BOTTLE BOTH EYES SCH (21:16)
[2018-04-28] MEDS: OXYCODONE Oral CONC 10 MG/0.5 ML ORAL.SYG SL SCH ×4 (00:02→12:07)
[2018-04-28] MEDS: 0.9 % Sodium Chloride 1,000 ML IVC SCH ×2 (00:05→09:17)
[2018-04-28] MEDS: *HR* FentaNYL (PF) 100 MCG/2 ML VIAL IVP PRN (02:06)
--- NOTE | 2018-04-28 08:14 | Orthopedics Progress Note ---
Date of Encounter: 04/28/18 Time of Encounter: 08:11 - Assessment and Plan (1) Hip fracture, right Current Visit: Yes Status: Acute Qualifiers: Encounter type: subsequent encounter Fracture type: closed Fracture healing: with routine healing Qualified Code(s): S72.001D - Fracture of unspecified part of neck of right femur, subsequent encounter for closed fracture with routine healing Subjective Interval history: S: The patient is on the stepdown unit after being in the ICU for suspected NSTEMI and PE Currently the patient is not verbally communicative O: Afebrile on the vital signs are stable Right hip dressing is clean, dry, and intact. No reaction from passive motion of the right hip. Unable to perform a neurologic exam given her mental status A: Internal fixation of the right hip P: At this point my recommendation is to undergo supportive care per the primary team Begin daily dressing changes on the right hip Therapy when able. Objective Vital signs: Vital Signs Temp Pulse Resp BP Pulse Ox 04/28/18 07:23 98.3 F 105 15 95/63 97 04/28/18 05:00 98.2 F 109 18 88/52 96 04/28/18 00:20 99.2 F 109 18 110/67 93 04/27/18 21:00 99 F 110 16 113/76 92 04/27/18 11:00 103 32 110/74 100 04/27/18 10:00 103 31 103/68 100 04/27/18 09:00 99 30 114/61 100 Intake and Output 04/27/18 04/28/18 04/28/18 23:59 07:59 15:59 Intake Total 975 / 975 Output Total 775 / 775 Balance 200 / 200 Intake: IV Fluids 975 / 975 0.9 % Sodium Chloride 1,000 ML 975 / 975 @ 125 mls/hr IVC .Q8H ALICIA Rx#: [id number] Output: Urine 775 / 775 - Labs CBC & BMP: 04/27/18 05:19 04/27/18 05:19 Labs: Abnormal lab results RBC 3.10 M/mcL (3.82-4.97) L 04/27/18 05:19 Hgb 10.0 g/dL (11.5-15.4) L 04/27/18 05:19 Hct 31.2 % (35.3-44.9) L 04/27/18 05:19 MCV 100.6 fL (83.0-100.0) H 04/27/18 05:19 RDW 15.9 % (11.5-14.5) H 04/27/18 05:19 Plt Count 124 K/mcL (140-400) L 04/27/18 05:19 ABG pH 7.25 pH Units (7.32-7.45) L 04/27/18 06:19 ABG pO2 73 mmHg (85-104) L 04/27/18 06:19 ABG HCO3 16 mEq/L (21-27) L 04/27/18 06:19 ABG Total CO2 18 mEq/L (20-26) L 04/27/18 06:19 ABG O2 Saturation 92 % (95-98) L 04/27/18 06:19 ABG Base Excess -10 mEq/L (-2 to 3) L 04/27/18 06:19 Potassium 5.3 mEq/L (3.5-5.1) H 04/27/18 05:19 Chloride 119 mEq/L (98-107) H 04/27/18 05:19 Carbon Dioxide 13 mEq/L (23-29) L 04/27/18 05:19 BUN 52 mg/dL (8-23) H 04/27/18 05:19 Creatinine 2.23 mg/dL (0.60-1.20) H 04/27/18 05:19 Est GFR ( Amer) 25 (> 60) L 04/27/18 05:19 Est GFR (Non-Af Amer) 21 (> 60) L 04/27/18 05:19 Glucose 107 mg/dL (70-105) H 04/27/18 05:19 POC Glucose 134 mg/dL (70-99) H 04/26/18 13:35 Calculated Osmolality 311 (280-300) H 04/27/18 05:19 Calcium 7.6 mg/dL (8.6-10.3) L 04/27/18 05:19 Phosphorus 5.4 mg/dL (2.7-4.5) H 04/26/18 00:49 AST 237 Units/L (13-39) H 04/27/18 05:19 ALT 123 Units/L (7-52) H 04/27/18 05:19 Alkaline Phosphatase 27 Units/L (34-104) L 04/27/18 05:19 Troponin I 22.96 ng/mL (< 0.04) H* 04/27/18 05:19 Serum Total Protein 5.6 g/dL (6.4-8.9) L 04/27/18 05:19 Albumin 3.3 g/dL (3.5-5.7) L 04/27/18 05:19 Globulin 2.3 g/dL (2.4-3.5) L 04/27/18 05:19 HDL Cholesterol 35 mg/dL (40-59) L 04/26/18 00:49 Urine Blood Trace (Negative) H 04/25/18 07:10 Urine Microscopic RBC 5-15 per hpf (0-3) H 04/25/18 07:10 Ur Squamous Epith Cells Moderate per lpf (None-Few) H 04/25/18 07:10 - VTE Documentation of Mechanical Device: Intermittent pneumatic compression device Consult Discharge Plan - Plan Additional Instructions: [facility] DIS[facility] IN[facility] Dr. Horta PROCEDURE PERFORMED Reduction and fixation of right hip. Incision care -Daily dressing changes to the right hip with dry gauze and either paper tape or medipore tape. -Avoid soaking wound in water (no hot tubs, bathtubs, swimming pools). -May shower after 2 weeks from surgery date. Carefully wash incision with soap and water. Gently pat it dry. Don't rub the incision, or apply creams or lotions. Sit on a shower stool when showering to keep from falling. Weight bearing status -Weightbearing as tolerated to the bilateral lower extremities. Medications -Pain medication per the discharging medical doctor -Enteric coated aspirin 325 mg by mouth twice per day for 28 days from the date of the surgery. Other -Knee high SINDI hose 23 hours per day -Consult physical and occupational therapy for mobilization. -Up to chair with assistance at least twice per day. -Follow up with your primary care physician to discuss testing for bone mineral density. Follow-up with Dr. Horta at the office 2 weeks from the surgery date for a post operative evaluation. Call the office at [phone] to schedule appointment. Referrals: Mauro Gee MD [Primary Care Provider] -
--- NOTE | 2018-04-28 10:24 | Internal Med Progress Note ---
Date of Encounter: 04/28/18 Time of Encounter: 10:22 - Assessment and plan (1) Hip fracture, right Current Visit: Yes Status: Acute Assessment and plan: Orthopedic surgery consulted; appreciate input. S/P right hip nailing. Post- operative course with hypotension and anemia, likely secondary to blood loss vs UT vs PE. Continue IV NS at 125 ml/hr. Family have elected to make patient comfort care only. She is DNR-CC now. Palliative care consulted; appreciate input. Pain control per palliative care. Her condition is critical. Qualifiers: Encounter type: subsequent encounter Fracture type: closed Fracture healing: with routine healing Qualified Code(s): S72.001D - Fracture of unspecified part of neck of right femur, subsequent encounter for closed fracture with routine healing (2) Hypertension Current Visit: Yes Status: Chronic Qualifiers: Hypertension type: essential hypertension Qualified Code(s): I10 - Essential (primary) hypertension (3) CKD (chronic kidney disease) Current Visit: Yes Status: Chronic Qualifiers: Chronic kidney disease stage: unspecified stage Qualified Code(s): N18.9 - Chronic kidney disease, unspecified (4) Anemia Current Visit: Yes Status: Acute Qualifiers: Anemia type: unspecified type Qualified Code(s): D64.9 - Anemia, unspecified (5) Goals of care, counseling/discussion Current Visit: Yes Status: Acute (6) Pulmonary embolism Current Visit: Yes Status: Suspected Qualifiers: Pulmonary embolism type: other Chronicity: unspecified Acute cor pulmonale presence: with acute cor pulmonale Qualified Code(s): I26.09 - Other pulmonary embolism with acute cor pulmonale (7) Elevated troponin Current Visit: Yes Status: Acute (8) Acute on chronic renal failure Current Visit: Yes Status: Chronic Qualifiers: Acute renal failure type: unspecified Chronic kidney disease stage: stage 3 (moderate) Qualified Code(s): N17.9 - Acute kidney failure, unspecified; N18.3 - Chronic kidney disease, stage 3 (moderate) (9) DVT prophylaxis Current Visit: Yes Status: Acute - Time Spent With Patient Total time spent is greater than 50% in coordination of care (as documented) at patient's floor/unit and/or counseling patient: less than 15 minutes - Subjective Interval history: Patient had no acute events overnight. She had some hypotension post-surgery, possibly secondary to UT vs PE. BP in systolic 90s this AM. Patient appears comfortable. Palliative care physician is in room speaking with family. Patient is now comfort care. - Constitutional Vitals: Temp Pulse Resp BP Pulse Ox 98.3 F 105 15 95/63 97 04/28/18 07:23 04/28/18 07:23 04/28/18 07:23 04/28/18 07:23 04/28/18 07:23 General appearance: Present: A&O X 0 (Not responding, not following commands), no acute distress. Absent: answers questions appropriately - Respiratory Respiratory exam: Present: CTAB. Absent: accessory muscle use, rales, rhonchi, wheezes Additional comments: Normal WOB - Cardiovascular Cardiovascular exam: Present: RRR, +S1, +S2. Absent: diastolic murmur, gallop, rubs, systolic murmur Additional comments: No BLE edema - GI/Abdominal GI/Abdominal exam: Present: normal bowel sounds, soft. Absent: distended, hepatomegaly, mass, splenomegaly, tenderness - Extremities Exam Additional comments: Bandaging over right hip - Psychiatric Psychiatric exam: Absent: agitated, anxious Additional comments: Unable to fully evaluate due to patient condition - Skin Skin exam: Present: dry, intact, warm. Absent: cyanosis, rash Internal Medicine: Result - Labs CBC & Chem 7: 04/27/18 05:19 04/27/18 05:19 - ABG Interpretation ABG results: ABG ABG pH 7.25 pH Units (7.32-7.45) L 04/27/18 06:19 ABG pCO2 37 mmHg (35-45) 04/27/18 06:19 ABG pO2 73 mmHg (85-104) L 04/27/18 06:19 ABG O2 Saturation 92 % (95-98) L 04/27/18 06:19 PT/INR, D-dimer PT 11.9 Seconds (9.4-12.1) 04/25/18 06:15 - VTE Documentation of Mechanical Device: Intermittent pneumatic compression device Consult Discharge Plan - Plan Additional Instructions: [facility] DISCHARGE INSTRUCTIONS Dr. Horta PROCEDURE PERFORMED Reduction and fixation of right hip. Incision care -Daily dressing changes to the right hip with dry gauze and either paper tape or medipore tape. -Avoid soaking wound in water (no hot tubs, bathtubs, swimming pools). -May shower after 2 weeks from surgery date. Carefully wash incision with soap and water. Gently pat it dry. Don't rub the incision, or apply creams or lotions. Sit on a shower stool when showering to keep from falling. Weight bearing status -Weightbearing as tolerated to the bilateral lower extremities. Medications -Pain medication per the discharging medical doctor -Enteric coated aspirin 325 mg by mouth twice per day for 28 days from the date of the surgery. Other -Knee high SINDI hose 23 hours per day -Consult physical and occupational therapy for mobilization. -Up to chair with assistance at least twice per day. -Follow up with your primary care physician to discuss testing for bone mineral density. Follow-up with Dr. Horta at the office 2 weeks from the surgery date for a post operative evaluation. Call the office at [phone] to schedule appointment. Referrals: Mauro Gee MD [Primary Care Provider] -
[2018-04-28 13:37] VITALS: BP 85/53
--- NOTE | 2018-04-28 13:45 | Discharge Summary ---
- NOTES TO OUTPATIENT PROVIDER Notes to Outpatient Provider: Transfer to inpatient hospice. Orders not resulted at time of discharge: Pending orders 04/25/18 06:14 Red Blood Cells [BBK] Stat Type and Screen [BBK] Routine 04/25/18 15:40 XR femur RT [XR] Routine 04/27/18 06:00 ECG 12 lead ECG [ECG] AM 0600 Date of Encounter: 04/28/18 Time of Encounter: 13:43 - Discharge Diagnosis (1) Hip fracture, right Priority: Primary Status: Acute Qualifiers: Encounter type: subsequent encounter Fracture type: closed Fracture healing: with routine healing Qualified Code(s): S72.001D - Fracture of unspecified part of neck of right femur, subsequent encounter for closed fracture with routine healing (2) Hypertension Priority: Secondary Status: Chronic Qualifiers: Hypertension type: essential hypertension Qualified Code(s): I10 - Essential (primary) hypertension (3) CKD (chronic kidney disease) Priority: Secondary Status: Chronic Qualifiers: Chronic kidney disease stage: unspecified stage Qualified Code(s): N18.9 - Chronic kidney disease, unspecified (4) Anemia Priority: Secondary Status: Acute Qualifiers: Anemia type: unspecified type Qualified Code(s): D64.9 - Anemia, unspecified (5) Goals of care, counseling/discussion Priority: Secondary Status: Acute (6) Pulmonary embolism Priority: Secondary Status: Suspected Qualifiers: Pulmonary embolism type: other Chronicity: unspecified Acute cor pulmonale presence: with acute cor pulmonale Qualified Code(s): I26.09 - Other pulmonary embolism with acute cor pulmonale (7) Elevated troponin Priority: Secondary Status: Acute (8) Acute on chronic renal failure Priority: Secondary Status: Chronic Qualifiers: Acute renal failure type: unspecified Chronic kidney disease stage: stage 3 (moderate) Qualified Code(s): N17.9 - Acute kidney failure, unspecified; N18.3 - Chronic kidney disease, stage 3 (moderate) (9) DVT prophylaxis Priority: Secondary Status: Acute Hospital course: Ms. Kelsey is a 87 year old female admitted for right hip fracture. Pre- operative cardiac workup showed patient as relatively high risk for surgery. Surgeon discussed case with patient and family, and they agreed to go ahead with surgery. Post-operative status complicated by hypotension, acute blood loss anemia and suspected PE versus MN. Troponin peaked at 29. Family elected to make patient DNR comfort care. Palliative care was consulted. After discussion with palliative care, family has elected to go inpatient hospice. Patient has met maximum benefit of this hospitalization and will be transferred to inpatient hospice in critical condition. Discharge discussed with: patient, family, nurse, territory sales consultant (Palliative Care Physician Dr. Frye) - Time Spent with Patient Total time spent providing and/or coordinating discharge services: Greater than 30 minutes - Discharge Medications Allergies/Adverse Reactions: 3 Allergy/AdvReac Type Severity Reaction Status Date / Time Sulfa (Sulfonamide Allergy Hives Verified 04/26/18 10:39 Antibiotics) Date of admission: 04/25/18 17:48 Primary care physician: Mauro Gee MD Consults: 04/25/18 06:15 Consult to Nutrition [CONS] Routine Comment: Consulting Provider: NUTRITION Reason for Dietary Consult: MST Score 04/25/18 06:18 Consult to Automotive Leasing Sales Representative [CONS] Routine Reason for SW Consult: HIP FRACTURE 04/25/18 08:58 Consult to Orthopedic Surgery [CONS] Routine Consulting Provider: [facility] Reason for Consult: Right Hip Fracture Call Completed: Yes 04/25/18 19:12 Consult to Occupational Therapy [CONS] Routine Comment: Evaluate, develop and implement POC Reason for Consult: post hip surgery Does patient have active BEDREST order?: No Is patient medically & hemodynamically stable?: Yes Consult to Physical Therapy [CONS] Routine Comment: Evaluate, develop and implement POC Reason for Consult: post hip surgery Does patient have active BEDREST order?: No Is patient medically & hemodynamically stable?: Yes 04/27/18 12:05 Consult to Palliative Care [CONS] Routine Comment: Consulting Provider: Palliative Care [facility] Reason for Consult: Comfort care, for possible inpatient hospice Call Completed: No Discharging clinician: Thien Fink Anticipated date of discharge: 04/28/18 - Constitutional Vitals: Temp Pulse Resp BP Pulse Ox 97.5 F L 102 22 85/53 95 04/28/18 13:36 04/28/18 13:36 04/28/18 13:36 04/28/18 13:36 04/28/18 13:36 Exam: PLEASE SEE PHYSICAL EXAM FROM MY PROGRESS NOTE FROM TODAY - Patient Status Disposition: Hospice - Medical Facility Condition: Critical Functional capacity at discharge: bed bound Overall status at discharge: patient is not back to baseline - Discharge Instructions Follow Up With: Mauro Gee MD [Primary Care Provider] - Additional Instructions: [facility] DISCHARGE INSTRUCTIONS Dr. Horta PROCEDURE PERFORMED Reduction and fixation of right hip. Incision care -Daily dressing changes to the right hip with dry gauze and either paper tape or medipore tape. -Avoid soaking wound in water (no hot tubs, bathtubs, swimming pools). -May shower after 2 weeks from surgery date. Carefully wash incision with soap and water. Gently pat it dry. Don't rub the incision, or apply creams or lotions. Sit on a shower stool when showering to keep from falling. Weight bearing status -Weightbearing as tolerated to the bilateral lower extremities. Medications -Pain medication per the discharging medical doctor -Enteric coated aspirin 325 mg by mouth twice per day for 28 days from the date of the surgery. Other -Knee high SINDI hose 23 hours per day -Consult physical and occupational therapy for mobilization. -Up to chair with assistance at least twice per day. -Follow up with your primary care physician to discuss testing for bone mineral density. Follow-up with Dr. Horta at the office 2 weeks from the surgery date for a post operative evaluation. Call the office at [phone] to schedule appointment. - Diet and Activity Diet: regular diet - VTE Documentation of Mechanical Device: Intermittent pneumatic compression device
--- NOTE | 2018-04-28 15:11 | Pulmonology Consult Note ---
Date of Encounter: 04/28/18 Time of Encounter: 09:30 Past Med Surg Social Fam HX - Past Medical History Medical history: dementia, glaucoma, hypertension Additional medical history: SHINGLES Psychiatric history: no psych history - Past Surgical History Surgical History: hysterectomy Additional surgical history: LEFT KNEE SURGERY - Social History Smoking Status: Former smoker Smokeless Tobacco Status: No Alcohol use: none Drug use: none - Family History Mother Living Status: Age at : 98 Father History Unknown: Yes Medications and Allergies 3 Allergy/AdvReac Type Severity Reaction Status Date / Time Sulfa (Sulfonamide Allergy Hives Verified 04/26/18 10:39 Antibiotics) All Systems: The remainder of the systems were reviewed and are negative Physical Examination Vital Signs: Vital Signs, Last 4 Hours Temp Pulse Resp BP Pulse Ox 04/28/18 13:36 97.5 F L 102 22 85/53 95 Results - Laboratory Findings CBC and BMP: 04/27/18 05:19 04/27/18 05:19 ABG ABG pH 7.25 pH Units (7.32-7.45) L 04/27/18 06:19 ABG pCO2 37 mmHg (35-45) 04/27/18 06:19 ABG pO2 73 mmHg (85-104) L 04/27/18 06:19 ABG O2 Saturation 92 % (95-98) L 04/27/18 06:19 PT/INR, D-dimer PT 11.9 Seconds (9.4-12.1) 04/25/18 06:15 Abnormal lab findings: Abnormal lab results RBC 3.10 M/mcL (3.82-4.97) L 04/27/18 05:19 Hgb 10.0 g/dL (11.5-15.4) L 04/27/18 05:19 Hct 31.2 % (35.3-44.9) L 04/27/18 05:19 MCV 100.6 fL (83.0-100.0) H 04/27/18 05:19 RDW 15.9 % (11.5-14.5) H 04/27/18 05:19 Plt Count 124 K/mcL (140-400) L 04/27/18 05:19 ABG pH 7.25 pH Units (7.32-7.45) L 04/27/18 06:19 ABG pO2 73 mmHg (85-104) L 04/27/18 06:19 ABG HCO3 16 mEq/L (21-27) L 04/27/18 06:19 ABG Total CO2 18 mEq/L (20-26) L 04/27/18 06:19 ABG O2 Saturation 92 % (95-98) L 04/27/18 06:19 ABG Base Excess -10 mEq/L (-2 to 3) L 04/27/18 06:19 Potassium 5.3 mEq/L (3.5-5.1) H 04/27/18 05:19 Chloride 119 mEq/L (98-107) H 04/27/18 05:19 Carbon Dioxide 13 mEq/L (23-29) L 04/27/18 05:19 BUN 52 mg/dL (8-23) H 04/27/18 05:19 Creatinine 2.23 mg/dL (0.60-1.20) H 04/27/18 05:19 Est GFR ( Amer) 25 (> 60) L 04/27/18 05:19 Est GFR (Non-Af Amer) 21 (> 60) L 04/27/18 05:19 Glucose 107 mg/dL (70-105) H 04/27/18 05:19 POC Glucose 134 mg/dL (70-99) H 04/26/18 13:35 Calculated Osmolality 311 (280-300) H 04/27/18 05:19 Calcium 7.6 mg/dL (8.6-10.3) L 04/27/18 05:19 Phosphorus 5.4 mg/dL (2.7-4.5) H 04/26/18 00:49 AST 237 Units/L (13-39) H 04/27/18 05:19 ALT 123 Units/L (7-52) H 04/27/18 05:19 Alkaline Phosphatase 27 Units/L (34-104) L 04/27/18 05:19 Troponin I 22.96 ng/mL (< 0.04) H* 04/27/18 05:19 Serum Total Protein 5.6 g/dL (6.4-8.9) L 04/27/18 05:19 Albumin 3.3 g/dL (3.5-5.7) L 04/27/18 05:19 Globulin 2.3 g/dL (2.4-3.5) L 04/27/18 05:19 HDL Cholesterol 35 mg/dL (40-59) L 04/26/18 00:49 Urine Blood Trace (Negative) H 04/25/18 07:10 Urine Microscopic RBC 5-15 per hpf (0-3) H 04/25/18 07:10 Ur Squamous Epith Cells Moderate per lpf (None-Few) H 04/25/18 07:10 - Clinical Findings Intake & Output: Intake & Output 04/27/18 04/28/18 04/28/18 23:59 07:59 15:59 Intake Total 975 / 975 1000 / 1000 Output Total 775 / 775 Balance 200 / 200 1000 / 1000 Consult Discharge Plan - Plan Additional Instructions: INTERMEDIATE DISCHARGE INSTRUCTIONS Dr. Horta PROCEDURE PERFORMED Reduction and fixation of right hip. Incision care -Daily dressing changes to the right hip with dry gauze and either paper tape or medipore tape. -Avoid soaking wound in water (no hot tubs, bathtubs, swimming pools). -May shower after 2 weeks from surgery date. Carefully wash incision with soap and water. Gently pat it dry. Don't rub the incision, or apply creams or lotions. Sit on a shower stool when showering to keep from falling. Weight bearing status -Weightbearing as tolerated to the bilateral lower extremities. Medications -Pain medication per the discharging medical doctor -Enteric coated aspirin 325 mg by mouth twice per day for 28 days from the date of the surgery. Other -Knee high SINDI hose 23 hours per day -Consult physical and occupational therapy for mobilization. -Up to chair with assistance at least twice per day. -Follow up with your primary care physician to discuss testing for bone mineral density. Follow-up with Dr. Horta at the office 2 weeks from the surgery date for a post operative evaluation. Call the office at [phone] to schedule appointment. Referrals: Mauro Gee MD [Primary Care Provider] -
--- NOTE | 2018-04-28 16:12 | Palliative - Consult Note ---
<Yas Walker - Last Filed: 04/28/18 16:26> Date of Encounter: 04/28/18 Time of Encounter: 09:30 - Assessment and Plan (1) Goals of care, counseling/discussion Status: Acute Assessment and plan: Discussion held with pt's son and daughter (the medical POA). They are both aware of their mother's suspected NSTEMI, suspected PE, and worsening renal failure. They have decided not to pursue further testing or invasive measures as they do not feel she would not want additional testing. Patient was transferred to , palliative care consulted, and code status changed to DNR- CCA. Goals of care were clarified with pt's son and daughter today, both were in agreement to move forward with comfort care only and to enroll in hospice care. The family raised concerns about patient's nutritional status and stated they did not want the patient to starve. Means of providing nutrition such as NG tube or PEG tube were discussed and family was educated on potential complications. The natural process of loss of desire to eat was explained; family decided not to pursue delivery of nutrition via NG or PEG. Patient will be admitted under general in-patient status to [facility] hospice service for a few days, during which time the son will prepare his home and DME will be delivered and set up in preparation for the patient to return home. (2) Hip fracture, right Status: Acute Assessment and plan: Surgical fixation on 04/26/18 Qualifiers: Encounter type: subsequent encounter Fracture type: closed Fracture healing: with routine healing Qualified Code(s): S72.001D - Fracture of unspecified part of neck of right femur, subsequent encounter for closed fracture with routine healing (3) NSTEMI (non-ST elevated myocardial infarction) Status: Acute Assessment and plan: Elevated troponin of 0.13 noted on labwork from 04/26/18, troponin continued to rise and reached the level of 22.96. (4) Pulmonary embolism Status: Suspected Qualifiers: Pulmonary embolism type: other Chronicity: unspecified Acute cor pulmonale presence: with acute cor pulmonale Qualified Code(s): I26.09 - Other pulmonary embolism with acute cor pulmonale Palliative-CN HPI - Data of Consult Patient: new to practice Consult date: 04/28/18 Requesting Physician: Mayco Mcgee MD Primary Care Provider: Mauro Gee MD - Consult Narrative History of present illness: Ms. Kelsey is an 87 year-old female who presented to an outside hospital for evaluation after a fall. Imaging studies revealed right sided hip fracture for which orthopedics was consulted and she subsequently had surgical fixation for on 04/25/18. The surgery had gone well, but the following day she became hypotensive and difficult to arouse--she was transferred to the ICU in critical condition. Additional post-op complications include acute blood loss anemia, PE , and NSTEMI. The patient's son and daughter were educated about the suspected diagnoses, they were made aware that without treatment, her suspected PE, NSTEMI , and worsening renal failure would lead to cardiac arrest and . The patient's son and daughter decided to change code status to comfort care and do not want further testing or invasive actions. CC: Mayco Mcgee MD Past Med Surg Social Fam HX - Past Medical History Medical history: dementia, glaucoma, hypertension Additional medical history: SHINGLES Psychiatric history: no psych history - Past Surgical History Surgical History: hysterectomy Additional surgical history: LEFT KNEE SURGERY - Social History Smoking Status: Former smoker Smokeless Tobacco Status: No Alcohol use: none Drug use: none - Family History Mother Living Status: Age at : 98 Father History Unknown: Yes Medications and Allergies 3 Allergy/AdvReac Type Severity Reaction Status Date / Time Sulfa (Sulfonamide Allergy Hives Verified 04/26/18 10:39 Antibiotics) ROS unobtainable: due to mental status Palliative Care-Exam - Constitutional Vitals: Temp Pulse Resp BP Pulse Ox 97.5 F L 102 22 85/53 95 04/28/18 13:36 04/28/18 13:36 04/28/18 13:36 04/28/18 13:36 04/28/18 13:36 General appearance: Present: no acute distress (sleeping) - ENT ENT exam: Present: mucous membranes dry - Respiratory Respiratory exam: Present: rales (bilateral). Absent: respiratory distress, wheezes - Cardiovascular Cardiovascular exam: Present: +S1, +S2, tachycardia - Catheter Type: Urethral (Srivastava) - Extremities Exam Additional comments: Bilateral upper extremity swelling - Neurological Exam Neurological exam: Absent: alert (sleeping, non-communicative) Internal Medicine - CN: Reslt - Labs CBC & Chem 7: 04/27/18 05:19 04/27/18 05:19 - ABG Interpretation ABG results: ABG ABG pH 7.25 pH Units (7.32-7.45) L 04/27/18 06:19 ABG pCO2 37 mmHg (35-45) 04/27/18 06:19 ABG pO2 73 mmHg (85-104) L 04/27/18 06:19 ABG O2 Saturation 92 % (95-98) L 04/27/18 06:19 PT/INR, D-dimer PT 11.9 Seconds (9.4-12.1) 04/25/18 06:15 Consult Discharge Plan - Plan Additional Instructions: RETIREMENT DISCHARGE INSTRUCTIONS Dr. Horta PROCEDURE PERFORMED Reduction and fixation of right hip. Incision care -Daily dressing changes to the right hip with dry gauze and either paper tape or medipore tape. -Avoid soaking wound in water (no hot tubs, bathtubs, swimming pools). -May shower after 2 weeks from surgery date. Carefully wash incision with soap and water. Gently pat it dry. Don't rub the incision, or apply creams or lotions. Sit on a shower stool when showering to keep from falling. Weight bearing status -Weightbearing as tolerated to the bilateral lower extremities. Medications -Pain medication per the discharging medical doctor -Enteric coated aspirin 325 mg by mouth twice per day for 28 days from the date of the surgery. Other -Knee high SINDI hose 23 hours per day -Consult physical and occupational therapy for mobilization. -Up to chair with assistance at least twice per day. -Follow up with your primary care physician to discuss testing for bone mineral density. Follow-up with Dr. Horta at the office 2 weeks from the surgery date for a post operative evaluation. Call the office at [phone] to schedule appointment. Referrals: Mauro Gee MD [Primary Care Provider] - Palliative Quality Palliative Quality: Screen for Code Status: Yes, Screen for Goals of Care: Yes, Screen for Pain: Yes Code Status: 04/26/18 14:32 CODE [Resuscitation Status: Active] [RES] Routine Comment: Conversation had with POAs daughter and son. Resuscitation Status: [id number] 04/27/18 11:49 DNR [Resuscitation Status: Active] [RES] Routine Comment: Resuscitation Status: DNR-Comfort Care <Deep Frye - Last Filed: 04/28/18 17:16> Date of Encounter: 04/28/18 Palliative-CN HPI - Data of Consult Requesting Physician: Mayco Mcgee MD Primary Care Provider: Mauro Gee MD - Consult Narrative History of present illness: Ms. Kelsey is a 87 year old female CC: Mayco Mcgee MD Palliative Care-Exam - Constitutional Vitals: Temp Pulse Resp BP Pulse Ox 97.5 F L 102 22 85/53 95 04/28/18 13:36 04/28/18 13:36 04/28/18 13:36 04/28/18 13:36 04/28/18 13:36 Internal Medicine - CN: Reslt - Labs CBC & Chem 7: 04/27/18 05:19 04/27/18 05:19 - ABG Interpretation ABG results: ABG ABG pH 7.25 pH Units (7.32-7.45) L 04/27/18 06:19 ABG pCO2 37 mmHg (35-45) 04/27/18 06:19 ABG pO2 73 mmHg (85-104) L 04/27/18 06:19 ABG O2 Saturation 92 % (95-98) L 04/27/18 06:19 PT/INR, D-dimer PT 11.9 Seconds (9.4-12.1) 04/25/18 06:15 - Attending Attestation I examined this patient and my medical decision-making was reviewed with the Resident Physician. I agree with the documented findings, disposition and treatment plan as described except to the extent set forth below. Patient was transitioned to general inpatient hospice care shortly after seen. Palliative Quality Code Status: 04/26/18 14:32 CODE [Resuscitation Status: Active] [RES] Routine Comment: Conversation had with POAs daughter and son. Resuscitation Status: [id number] 04/27/18 11:49 DNR [Resuscitation Status: Active] [RES] Routine Comment: Resuscitation Status: DNR-Comfort Care
--- NOTE | 2018-04-28 18:03 | Electrocardiograph Report ---
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
--- NOTE | 2018-04-30 07:58 | Death Note ---
Discharge Sum: Summary - Date and Time Date of admission: 04/25/18 17:48 Date of : 04/30/18 Time of : 01:40 - Summary Details: Received phone call from 2A Nurse caring for Ms. Kelsey that patient had at 0140. - Additional Data Confirmation of as documented by pronouncing clinician: no pulse, no respirations, no heart sounds Attending/PCP notified?: Yes (Dr. Frye notified.) Attending physician: Mayco Mcgee MD Was code activated?: No Autopsy requested?: No budget examiner notified?: No Organ bank notified?: No Advance directives: No Hospice patient?: Yes Discharge Sum: Diag - PCOD Probable Cause of : Myocardial Infarction Discharge Sum: Prov - Provider Primary care physician: Mauro Gee MD Admitting clinician: Deep Frye Attending physician on admission: Deep Frye Consults: 04/25/18 06:15 Consult to Nutrition [CONS] Routine Comment: Consulting Provider: NUTRITION Reason for Dietary Consult: MST Score 04/25/18 06:18 Consult to Fill Plant Operator [CONS] Routine Reason for SW Consult: HIP FRACTURE 04/25/18 08:58 Consult to Orthopedic Surgery [CONS] Routine Consulting Provider: [facility] Reason for Consult: Right Hip Fracture Call Completed: Yes 04/25/18 19:12 Consult to Occupational Therapy [CONS] Routine Comment: Evaluate, develop and implement POC Reason for Consult: post hip surgery Does patient have active BEDREST order?: No Is patient medically & hemodynamically stable?: Yes Consult to Physical Therapy [CONS] Routine Comment: Evaluate, develop and implement POC Reason for Consult: post hip surgery Does patient have active BEDREST order?: No Is patient medically & hemodynamically stable?: Yes 04/27/18 12:05 Consult to Palliative Care [CONS] Routine Comment: Consulting Provider: [facility] Reason for Consult: Comfort care, for possible inpatient hospice Call Completed: No Pronouncing clinician: Deep Frye
== END 2018-04-28 14:35 | disposition hospice, inpatient (51) | DRG 480 ==
LOC: INTOOBSV 03:09 → 3NENU 03:09 → ICNU 04-26 13:59 → 2ANU 04-27 15:38
PROVIDERS: ADMIT Family Medicine; ATTEND Family Medicine

== ENCOUNTER 2018-04-28 13:48 | Inpatient (IN) ==
[2018-04-28] MEDS ORDERED: Haloperidol Lactate 5 MG/ML VIAL IVP PRN (13:57)
[2018-04-28] MEDS ORDERED: *HR* LORazepam Oral Conc 2 MG/ML PO PRN (13:57)
[2018-04-28] MEDS ORDERED: Haloperidol Oral Conc 10 MG/5 ML UDC PO PRN (13:57)
[2018-04-28] MEDS ORDERED: Ondansetron 4 MG/2 ML VIAL IVP PRN (13:57)
[2018-04-28] MEDS ORDERED: *HR* LORazepam 2 MG/ML VIAL IVP PRN (13:57)
[2018-04-28] MEDS ORDERED: Acetaminophen 650 MG RECTAL SUPP RC PRN (13:57)
--- NOTE | 2018-04-28 14:13 | Pallative History & Physical ---
Date of Encounter: 04/28/18 Time of Encounter: 14:13 Assessment and Plan (1) Hip fracture, right Current visit: No Status: Acute status post repair of the right hip. I will manage pain and with the dressings. There will be no further aggressive care for the hip. She speaks help with this, and I have notified orthopedics of the change management consultant to hospice care. Qualifiers: Encounter type: subsequent encounter Fracture type: closed Fracture healing: with routine healing Qualified Code(s): S72.001D - Fracture of unspecified part of neck of right femur, subsequent encounter for closed fracture with routine healing (2) Goals of care, counseling/discussion Current visit: No Status: Acute DNR comfort care was already established before consultation with the palliative care service, patient is going general inpatient hospice for pain control anticipate discharge be or Saturday. (3) Pulmonary embolism Current visit: No Status: Suspected Continue oxygen and pain medications. Qualifiers: Pulmonary embolism type: other Chronicity: unspecified Acute cor pulmonale presence: with acute cor pulmonale Qualified Code(s): I26.09 - Other pulmonary embolism with acute cor pulmonale (4) Elevated troponin Current visit: No Status: Acute Non-ST elevation [place], will continue pain medication as needed. (5) Acute on chronic renal failure Current visit: No Status: Chronic Slow but definite genu decline in renal function. Will therefore adjust medications for renal failure. Patient is general inpatient hospice. Qualifiers: Acute renal failure type: unspecified Chronic kidney disease stage: stage 3 (moderate) Qualified Code(s): N17.9 - Acute kidney failure, unspecified; N18.3 - Chronic kidney disease, stage 3 (moderate) Internal Medicine - H&P: HPI Chief complaint: ams Admitted From: Intrahospital Transfer Plans for Post Hospital Care: Hospice - Home History of present illness: Ms. Kelsey is a 87 year old female Patient brought in by family from home with history of fracture of the right hip. This was repaired on the that the patient is done quite poorly potentially an altered mental status. After a long discussion with the hospitalist yesterday family thought they might wish to go with hospice care and for care only at this point in time we will bring the patient into the general inpatient hospice service for pain control transition her to hospice care. O stop her daily the patient had a non-STEMI as well as the possibility of urinary embolus in worsening renal failure. Her discussion with the hospitalist regarding that is when the patient's family said that she would not want to continue this and was switched over to hospice care. Past Med Surg Social Fam HX - Past Medical History Medical history: dementia, glaucoma, hypertension Additional medical history: SHINGLES Psychiatric history: no psych history - Past Surgical History Surgical History: hysterectomy Additional surgical history: LEFT KNEE SURGERY - Social History Smoking Status: Former smoker Smokeless Tobacco Status: No Alcohol use: none Drug use: none - Family History Mother Living Status: Internal Medicine - H&P: Meds 3 Allergy/AdvReac Type Severity Reaction Status Date / Time Sulfa (Sulfonamide Allergy Hives Verified 04/26/18 10:39 Antibiotics) ROS unobtainable: due to mental status Palliative Care-Exam - Constitutional General appearance: Present: no acute distress - Eye Eye exam: Present: normal appearance - Respiratory Respiratory exam: Present: decreased breath sounds, rales - Cardiovascular Cardiovascular exam: Present: RRR - GI/Abdominal Exam GI/Abdominal exam: Present: diminished bowel sounds, soft. Absent: tenderness - Extremities Exam Extremities exam: Present: pedal edema - Neurological Exam Neurological exam: Present: altered - Psychiatric Psychiatric exam: Absent: agitated, anxious - Skin Skin exam: Present: dry, warm Palliative Quality Palliative Quality: Screen for Code Status: Yes, Screen for Goals of Care: Yes, Screen for Pain: Yes, If Pain Regimen Started, Initiate Bowel Regimen: Yes, Screen for Nausea/Vomitting: Yes Code Status: 04/28/18 13:57 Resuscitation Status: Active [RES] Stat Resuscitation Status: DNR-Comfort Care Comment:
--- NOTE | 2018-04-28 15:44 | Palliative - Consult Note ---
Date of Encounter: 04/28/18 Time of Encounter: 09:30 Palliative-CN HPI - Data of Consult Requesting Physician: Deep Frye MD Primary Care Provider: Mauro Gee MD - Consult Narrative History of present illness: Ms. Kelsey is a 87 year old female CC: Deep Frye MD Past Med Surg Social Fam HX - Past Medical History Medical history: dementia, glaucoma, hypertension Additional medical history: SHINGLES Psychiatric history: no psych history - Past Surgical History Surgical History: hysterectomy Additional surgical history: LEFT KNEE SURGERY - Social History Smoking Status: Former smoker Smokeless Tobacco Status: No Alcohol use: none Drug use: none - Family History Mother Living Status: Medications and Allergies 3 Allergy/AdvReac Type Severity Reaction Status Date / Time Sulfa (Sulfonamide Allergy Hives Verified 04/26/18 10:39 Antibiotics) Palliative Care-Exam - Constitutional General appearance: Present: no acute distress Consult Discharge Plan - Plan Referrals: Mauro Gee MD [Primary Care Provider] - Palliative Quality Palliative Quality: Screen for Code Status: Yes, Screen for Goals of Care: Yes, Screen for Pain: Yes, If Pain Regimen Started, Initiate Bowel Regimen: Yes, Screen for Nausea/Vomitting: Yes Code Status: 04/28/18 13:57 Resuscitation Status: Active [RES] Stat Comment: Resuscitation Status: DNR-Comfort Care
--- NOTE | 2018-04-28 15:48 | Event Note ---
Date of Encounter: 04/28/18 Time of Encounter: 15:47 Hospice medical office receptionist certification of terminal illness: Hospice benefit. Start: 04/28/2018 Hospice benefit. In: +90 days Palliative performance scale: 20-30% History: Patient with history of dementia fell broke right hip, postoperatively complicated by probable PE as well as non-ST elevation [place]. Patient is not eating or drinking and eating renal failure and family does not wish to pursue any further aggressive therapy. Due to the combination of the above factors complicated by her dementia and the fact that the family does not wish to engage in any artificial feeding him I believe that These findings support a life expectancy of 6 months or less. I attest that I have compose the above narrative based on my review of the patient's medical records, and or on my examination of the patient. Deep Frye M.D. Associate medical record retrieval specialist. [facility]
[2018-04-28] MEDS: OXYCODONE Oral CONC 10 MG/0.5 ML ORAL.SYG SL PRN (18:12)
[2018-04-28] MEDS: Bisacodyl 10 MG RECTAL SUPPOSITORY RC SCH (20:06)
[2018-04-28] MEDS: Latanoprost 2.5 ML BOTTLE BOTH EYES SCH (20:08)
[2018-04-29] MEDS: Atropine Sulfate 1% 40 DROP/2 ML BOTTLE SL PRN ×7 (07:32→21:24)
[2018-04-29] MEDS: OXYCODONE Oral CONC 10 MG/0.5 ML ORAL.SYG SL PRN ×2 (07:45→18:21)
--- NOTE | 2018-04-29 10:43 | Palliative Progress Note ---
Date of Encounter: 04/29/18 Time of Encounter: 09:20 - Assessment and plan (1) Hip fracture, right Current Visit: No Status: Acute Assessment and plan: status post repair of the right hip. I will manage pain and with the dressings. There will be no further aggressive care for the hip. She speaks help with this, and I have notified orthopedics of the tire changer aircraft to hospice care. The patient's pain need to been fairly minimal to now continue to watch carefully. Qualifiers: Encounter type: subsequent encounter Fracture type: closed Fracture healing: with routine healing Qualified Code(s): S72.001D - Fracture of unspecified part of neck of right femur, subsequent encounter for closed fracture with routine healing (2) Goals of care, counseling/discussion Current Visit: No Status: Acute Assessment and plan: DNR comfort care was already established before consultation with the palliative care service, patient is going general inpatient hospice for pain control anticipate discharge be or Saturday. (3) Pulmonary embolism Current Visit: No Status: Suspected Assessment and plan: Continue oxygen and pain medications. She is oxygen saturations are doing just fine, continue to watch Qualifiers: Pulmonary embolism type: other Chronicity: unspecified Acute cor pulmonale presence: with acute cor pulmonale Qualified Code(s): I26.09 - Other pulmonary embolism with acute cor pulmonale (4) Elevated troponin Current Visit: No Status: Acute Assessment and plan: Non-ST elevation [place], will continue pain medication as needed. (5) Acute on chronic renal failure Current Visit: No Status: Chronic Assessment and plan: Slow but definite genu decline in renal function. Will therefore adjust medications for renal failure. Patient is general inpatient hospice. Patient does continue to have renal output. Continue to watch. Also avoid renal toxic Qualifiers: Acute renal failure type: unspecified Chronic kidney disease stage: stage 3 (moderate) Qualified Code(s): N17.9 - Acute kidney failure, unspecified; N18.3 - Chronic kidney disease, stage 3 (moderate) - Time Spent With Patient Total time spent is greater than 50% in coordination of care (as documented) at patient's floor/unit and/or counseling patient: - Subjective Interval history: The patient is comfortable, been started last night using very little pain medication blood pressure is low. - Constitutional General appearance: Present: no acute distress - Respiratory Respiratory exam: Present: decreased breath sounds, rhonchi - Cardiovascular Cardiovascular exam: Present: RRR, tachycardia - GI/Abdominal GI/Abdominal exam: Present: hypoactive bowel sounds, soft. Absent: tenderness - Extremities Exam Extremities exam: Present: pedal edema - Neurological Exam Neurological exam: Present: altered - Psychiatric Psychiatric exam: Absent: agitated, anxious - Skin Skin exam: Present: dry, warm Palliative Quality Palliative Quality: Screen for Code Status: Yes, Screen for Goals of Care: Yes, Screen for Pain: Yes, If Pain Regimen Started, Initiate Bowel Regimen: Yes, Screen for Nausea/Vomitting: Yes Code Status: 04/28/18 13:57 Resuscitation Status: Active [RES] Stat Comment: Resuscitation Status: DNR-Comfort Care Consult Discharge Plan - Plan Referrals: Mauro Gee MD [Primary Care Provider] -
[2018-04-29 19:50] VITALS: BP 53/36
[2018-04-29] MEDS: Bisacodyl 10 MG RECTAL SUPPOSITORY RC SCH (21:08)
[2018-04-29] MEDS: Latanoprost 2.5 ML BOTTLE BOTH EYES SCH (21:24)
[2018-04-30] MEDS: OXYCODONE Oral CONC 10 MG/0.5 ML ORAL.SYG SL PRN (00:48)
--- NOTE | 2018-05-01 07:37 | Death Note ---
Discharge Sum: Summary - Date and Time Date of admission: 04/28/18 14:37 Date of : 04/30/18 Time of : 01:45 - Summary Details: Patient brought onto the general inpatient hospice service after family decided no further aggressive care following non-ST WI, and possible PE after surgery for right hip fracture. Had a stumble and fall at home causing the right hip fracture. Patient's pain was well-controlled patient did take a nature turndown word on the third she passed quietly and comfortably on the fourth at 0 145 family present. Cause of respiratory failure secondary to coronary artery disease ( postoperative non-STEMI) recent hip fracture Comorbidities renal failure, dementia and hypertension Patient was a smoker this was probably contributory to her . - Additional Data Confirmation of as documented by pronouncing clinician: no pulse, no respirations, no heart sounds Family: at bedside Attending/PCP notified?: Yes Attending physician: Deep Frye MD Was code activated?: No Autopsy requested?: No death claim examiner notified?: No (Does not appear to have occurred. I have requested that the nurses contact) Organ bank notified?: No Advance directives: Yes Hospice patient?: Yes Discharge Sum: Diag - PCOD Probable Cause of : Respiratory arrest Discharge Sum: Prov - Provider Primary care physician: Mauro Gee MD Consults: 04/28/18 14:06 Consult to Palliative Care [CONS] Routine Comment: Consulting Provider: [facility] Reason for Consult: coverage Call Completed: Yes
== END 2018-04-30 01:45 | disposition expired ==
LOC: 2ANU 14:37
PROVIDERS: ADMIT Family Medicine Hospice and Palliative Medicine; ATTEND Family Medicine Hospice and Palliative Medicine